=== PATIENT | female | born 1930 | race Caucasian/White ===

== ENCOUNTER 2016-05-09 17:42 | Emergency (ER) | payer MEDICARE ==
[~2016-05-09] VITALS: Wt 90.7 kg
[~2016-05-09 17:42] MED LIST: 'TENORMIN50 MG; ALPHAGAN-P 0.2%5 ML; ASPIRIN81 M1 PO; HYDROCHLOROTHIA25 MG PO; ICAPS MV1 TAB PO; KCL; LASIX20 MG; LEVOFLOXACIN500 MG PO; LISINOPRIL40 MG PO; MAREPA1200 MG; METFORMIN500 MG PO; MINIPRESS1 M1; NEXIUM40 MG PO; TRAMADOL HCL50 MG PO; VALIUM5 MG PO; ZETIA10 MG PO; [UNRECOGNIZED DRUG - OTHER] PO
[2016-05-09] MEDS ORDERED: K-TAB20 MEQ PO (18:05)
[2016-05-09 18:14] LABS: BASO % 0.3 % (0.0-1.0); EOS # 0.1 10*3/uL (0.0-0.4); EOS % 0.8 % (1.0-4.0); HEMATOCRIT 34.4 % (37.0-47.0); HEMOGLOBIN 11.4 g/dl (12.0-16.0); LYMPH # 0.7 10*3/uL (1.3-4.4); LYMPH % 6.2 % (27.0-41.0); MEAN CELL VOLUME 89.4 fl (81.0-99.0); MEAN CORPUSCULAR HGB 29.6 pg (27.0-31.0); MEAN CORPUSCULAR HGB CONC 33.1 g/dl (33.0-37.0); MONO # 0.7 10*3/uL (0.1-1.0); MONO % 6.4 % (3.0-9.0); NEUT # 9.6 10*3/uL (2.3-7.9); NEUT % 85.9 % (47.0-73.0); PLATELET COUNT AUTOMATED 256 10*3/uL (130-400); RED BLOOD COUNT 3.85 10*6/uL (4.10-5.10); WHITE BLOOD COUNT 11.2 10*3/uL (4.8-10.8)
[2016-05-09 18:26] LABS: BUN 10 mg/dl (7-24); CARBON DIOXIDE 24 mmol/L (21-32); CHLORIDE 102 mmol/L (98-107); EST GLOM FILT AFRICAN AMERICAN > 60 ml/min; GLUCOSE 143 mg/dL (65-99); POTASSIUM 3.7 mmol/L (3.5-5.1); SODIUM 138 mmol/L (136-145)
== END 2016-05-09 22:00 | disposition short-term general hospital (02) ==
LOC: ED 17:42
PROVIDERS: Emergency Medicine
DX: I63.9 Cerebral infarction, unspecified (principal); Z79.82 Long term (current) use of aspirin; Z90.49 Acquired absence of other specified parts of digestive tract; Z79.899 Other long term (current) drug therapy

== ENCOUNTER → 2016-05-26 | Outpatient (CLI) | payer MEDICARE ==
[~2016-05-26] MED LIST changes: +K-TAB20 MEQ PO
[2016-05-26 11:15] LABS: BILIRUBIN NEGATIVE (NEGATIVE); BLOOD NEGATIVE (NEGATIVE); CLARITY CLEAR (CLEAR); COLOR YELLOW (YELLOW); GLUCOSE NEGATIVE (NEGATIVE); KETONE NEGATIVE (NEGATIVE); LEUKO ESTERASE TRACE (NEGATIVE); NITRITE NEGATIVE (NEGATIVE); PROTEIN NEGATIVE (NEGATIVE); UROBILINOGEN 0.2 E.U./dl (0.2-1.0)
[2016-05-26 11:26] LABS: BACTERIA TRACE; RBC 0-2 rbc/hpf (0-2)
[2016-05-26 11:32] LABS: BASO # 0.1 10*3/uL (0.0-0.1); BASO % 0.7 % (0.0-1.0); EOS # 0.3 10*3/uL (0.0-0.4); EOS % 2.8 % (1.0-4.0); HEMOGLOBIN 12.2 g/dl (12.0-16.0); LYMPH # 1.5 10*3/uL (1.3-4.4); LYMPH % 16.1 % (27.0-41.0); MEAN CELL VOLUME 89.4 fl (81.0-99.0); MEAN CORPUSCULAR HGB 29.5 pg (27.0-31.0); MEAN PLATELET VOLUME 10.2 fl (9.6-12.3); MONO # 0.5 10*3/uL (0.1-1.0); MONO % 5.2 % (3.0-9.0); NEUT # 6.7 10*3/uL (2.3-7.9); NEUT % 74.8 % (47.0-73.0); PLATELET COUNT AUTOMATED 296 10*3/uL (130-400); RED BLOOD COUNT 4.14 10*6/uL (4.10-5.10); RED CELL DISTRI WIDTH 13.5 % (0-14.5)
[2016-05-26 11:34] LABS: HEMOGLOBIN A1c 6.4 % (4.8-5.6)
[2016-05-26 12:11] LABS: ALBUMIN 3.4 gm/dl (3.1-4.5); ALKALINE PHOSPHATASE 63 U/L (45-117); BILIRUBIN, TOTAL 0.4 mg/dl (0.2-1.0); BUN 12 mg/dl (7-24); CARBON DIOXIDE 24 mmol/L (21-32); CHLORIDE 102 mmol/L (98-107); EST GLOM FILT AFRICAN AMERICAN > 60 ml/min; GLUCOSE 93 mg/dL (65-99); POTASSIUM 4.1 mmol/L (3.5-5.1); SGOT/AST 15 IU/L (3-35); SGPT/ALT 16 U/L (12-78); SODIUM 140 mmol/L (136-145); TOTAL PROTEIN 6.8 gm/dL (6.4-8.2)
== END | disposition home or self-care (01) ==
LOC: LAB 10:15 → CARD 10:30
PROVIDERS: Nurse Practitioner Family
DX: E11.65 Type 2 diabetes mellitus with hyperglycemia (principal); I63.8 Other cerebral infarction; M54.9 Dorsalgia, unspecified; Z79.899 Other long term (current) drug therapy; E78.00 Pure hypercholesterolemia, unspecified

== ENCOUNTER 2016-06-09 16:13 | Emergency (ER) | payer MEDICARE ==
[~2016-06-09] VITALS: Ht 165.1 cm; Wt 77.1 kg
[2016-06-09 17:29] LABS: BASO % 0.4 % (0.0-1.0); EOS # 0.2 10*3/uL (0.0-0.4); EOS % 2.2 % (1.0-4.0); HEMATOCRIT 36.8 % (37.0-47.0); HEMOGLOBIN 12.1 g/dl (12.0-16.0); IG # 0.1 10*3/uL (0.0-0.1); LYMPH % 11.2 % (27.0-41.0); MEAN CORPUSCULAR HGB 29.6 pg (27.0-31.0); MEAN CORPUSCULAR HGB CONC 32.9 g/dl (33.0-37.0); MEAN PLATELET VOLUME 10.3 fl (9.6-12.3); MONO # 0.7 10*3/uL (0.1-1.0); MONO % 8.1 % (3.0-9.0); NEUT # 6.6 10*3/uL (2.3-7.9); NEUT % 77.5 % (47.0-73.0); PLATELET COUNT AUTOMATED 210 10*3/uL (130-400); RED BLOOD COUNT 4.09 10*6/uL (4.10-5.10); RED CELL DISTRI WIDTH 14.5 % (0-14.5); WHITE BLOOD COUNT 8.6 10*3/uL (4.8-10.8)
[2016-06-09 17:37] LABS: PROTHROMBIN TIME 10.8 SECONDS (9.0-12.4)
[2016-06-09 17:46] LABS: ALKALINE PHOSPHATASE 64 U/L (45-117); BILIRUBIN, TOTAL 0.6 mg/dl (0.2-1.0); BUN 12 mg/dl (7-24); CARBON DIOXIDE 26 mmol/L (21-32); CHLORIDE 98 mmol/L (98-107); EST GLOM FILT AFRICAN AMERICAN > 60 ml/min; GLUCOSE 136 mg/dL (65-99); POTASSIUM 3.6 mmol/L (3.5-5.1); SGOT/AST 14 IU/L (3-35); SGPT/ALT 20 U/L (12-78); SODIUM 134 mmol/L (136-145); TOTAL PROTEIN 6.6 gm/dL (6.4-8.2)
[2016-06-09 18:58] LABS: BILIRUBIN NEGATIVE (NEGATIVE); BLOOD 2+ (NEGATIVE); CLARITY SL CLOUDY (CLEAR); COLOR YELLOW (YELLOW); GLUCOSE NEGATIVE (NEGATIVE); KETONE NEGATIVE (NEGATIVE); LEUKO ESTERASE 1+ (NEGATIVE); NITRITE NEGATIVE (NEGATIVE); PROTEIN NEGATIVE (NEGATIVE); SPECIFIC GRAVITY <= 1.005 (1.005-1.030)
[2016-06-09 19:03] LABS: BACTERIA 4+; URINE REFLEX COMMENT YES (NO)
== END 2016-06-09 21:30 | disposition short-term general hospital (02) ==
LOC: ED 16:13
PROVIDERS: Nurse Practitioner Family
DX: S72.001A Fracture of unspecified part of neck of right femur, initial encounter for closed fracture (principal); I10 Essential (primary) hypertension; Z79.899 Other long term (current) drug therapy; W01.0XXA Fall on same level from slipping, tripping and stumbling without subsequent striking against object, initial encounter; Y93.9 Activity, unspecified; Y92.9 Unspecified place or not applicable; Y99.9 Unspecified external cause status

== ENCOUNTER 2016-06-16 19:07 | Inpatient (IN) | payer MEDICARE ==
[~2016-06-16] VITALS: Ht 157.5 cm; Wt 80.5 kg
[~2016-06-16 19:07] MED LIST changes: -ALPHAGAN-P 0.2%5 ML; +ALPHAGAN-P 0.2%5 ML OU
[2016-06-16 19:10] VITALS: BP 139/69
[2016-06-16] MEDS ORDERED: ACETAMINOPHEN325 M2 PO (19:18)
[2016-06-16] MEDS ORDERED: BIOFREEZE118 ML TP (19:19)
[2016-06-16] MEDS ORDERED: BISCOLAX10 M1 RC (19:20)
[2016-06-16] MEDS ORDERED: CELEXA20 MG PO (19:21)
[2016-06-16] MEDS ORDERED: CLINDAMYCIN150 MG PO (19:22)
[2016-06-16] MEDS ORDERED: COLACE100 MG PO (19:23)
[2016-06-16] MEDS ORDERED: CRESTOR40 M1 PO (19:24)
[2016-06-16] MEDS ORDERED: MILK OF MA400 MG/5 M PO (19:27)
[2016-06-16] MEDS ORDERED: NORCO 5-325 TA1 EACH PO (19:30)
[2016-06-16] MEDS ORDERED: PLAVIX75 M1 PO (19:31)
[2016-06-16] MEDS ORDERED: TRAMADOL HCL50 MG PO (19:33)
[2016-06-16] MEDS ORDERED: BETIMOL5 ML OP (19:33)
[2016-06-16] MEDS ORDERED: VITAMIN D1000 IU PO (19:34)
[2016-06-16 19:54] LABS: BASO % 0.1 % (0.0-1.0); EOS # 0.2 10*3/uL (0.0-0.4); EOS % 1.3 % (1.0-4.0); HEMATOCRIT 29.3 % (37.0-47.0); HEMOGLOBIN 9.6 g/dl (12.0-16.0); IG # 0.1 10*3/uL (0.0-0.1); LYMPH # 1.3 10*3/uL (1.3-4.4); LYMPH % 9.3 % (27.0-41.0); MEAN CELL VOLUME 89.3 fl (81.0-99.0); MEAN CORPUSCULAR HGB 29.3 pg (27.0-31.0); MEAN CORPUSCULAR HGB CONC 32.8 g/dl (33.0-37.0); MEAN PLATELET VOLUME 10.1 fl (9.6-12.3); MONO # 1.1 10*3/uL (0.1-1.0); MONO % 7.4 % (3.0-9.0); NEUT # 11.5 10*3/uL (2.3-7.9); NEUT % 81.2 % (47.0-73.0); PLATELET COUNT AUTOMATED 376 10*3/uL (130-400); RED BLOOD COUNT 3.28 10*6/uL (4.10-5.10); RED CELL DISTRI WIDTH 14.3 % (0-14.5); WHITE BLOOD COUNT 14.1 10*3/uL (4.8-10.8)
[2016-06-16 20:00] VITALS: BP 152/79
[2016-06-16 20:12] LABS: ALKALINE PHOSPHATASE 150 U/L (45-117); BILIRUBIN, TOTAL 0.5 mg/dl (0.2-1.0); BUN 23 mg/dl (7-24); CARBON DIOXIDE 18 mmol/L (21-32); CHLORIDE 102 mmol/L (98-107); EST GLOM FILT AFRICAN AMERICAN > 60 ml/min; GLUCOSE 122 mg/dL (65-99); POTASSIUM 3.6 mmol/L (3.5-5.1); SGOT/AST 25 IU/L (3-35); SGPT/ALT 28 U/L (12-78); SODIUM 136 mmol/L (136-145); TOTAL PROTEIN 5.9 gm/dL (6.4-8.2)
[2016-06-16 21:51] LABS: LA>2 REFLEX 2 HR DRAW NOW
[2016-06-16 22:24] VITALS: BP 142/70
[2016-06-16 22:26] LABS: LA>2 RFLX FOLLOW UP AT 2 HRS 3.3 mmol/L (0.4-2.0)
[2016-06-16 22:45] VITALS: BP 140/60
[2016-06-17 00:13] LABS: LA>2 REFLEX 4 HR DRAW NOW
[2016-06-17 01:03] LABS: CKMB 1.1 ng/ml (0.5-3.6); CPK 37 U/L (26-192)
[2016-06-17 01:04] LABS: TROPONIN I < 0.015 ng/ml (<0.045)
[2016-06-17 06:39] LABS: BASO % 0.3 % (0.0-1.0); EOS # 0.2 10*3/uL (0.0-0.4); EOS % 1.8 % (1.0-4.0); HEMATOCRIT 26.1 % (37.0-47.0); HEMOGLOBIN 8.4 g/dl (12.0-16.0); IG # 0.1 10*3/uL (0.0-0.1); LYMPH # 0.9 10*3/uL (1.3-4.4); LYMPH % 8.2 % (27.0-41.0); MEAN CELL VOLUME 90.3 fl (81.0-99.0); MEAN CORPUSCULAR HGB 29.1 pg (27.0-31.0); MEAN CORPUSCULAR HGB CONC 32.2 g/dl (33.0-37.0); MEAN PLATELET VOLUME 9.9 fl (9.6-12.3); MONO # 0.7 10*3/uL (0.1-1.0); MONO % 6.1 % (3.0-9.0); NEUT # 8.9 10*3/uL (2.3-7.9); NEUT % 82.4 % (47.0-73.0); PLATELET COUNT AUTOMATED 359 10*3/uL (130-400); RED BLOOD COUNT 2.89 10*6/uL (4.10-5.10); RED CELL DISTRI WIDTH 14.5 % (0-14.5); WHITE BLOOD COUNT 10.8 10*3/uL (4.8-10.8)
[2016-06-17 06:54] LABS: CKMB 1.1 ng/ml (0.5-3.6); CPK 32 U/L (26-192)
[2016-06-17 07:04] LABS: TROPONIN I < 0.015 ng/ml (<0.045)
[2016-06-17 07:07] LABS: ALKALINE PHOSPHATASE 130 U/L (45-117); BILIRUBIN, TOTAL 0.5 mg/dl (0.2-1.0); BUN 18 mg/dl (7-24); CARBON DIOXIDE 23 mmol/L (21-32); CHLORIDE 102 mmol/L (98-107); CHOLESTEROL 80 mg/dL (<200); EST GLOM FILT AFRICAN AMERICAN > 60 ml/min; FREE T4 1.14 ng/dl (0.76-1.46); GLUCOSE 116 mg/dL (65-99); HDL CHOLESTEROL 25 mg/dl (40-60); LDL CHOLESTEROL 26 mg/dL (9-159); MAGNESIUM 1.6 mg/dL (1.5-2.1); PHOSPHOROUS 2.4 mg/dL (2.5-4.9); POTASSIUM 3.4 mmol/L (3.5-5.1); SGOT/AST 21 IU/L (3-35); SGPT/ALT 25 U/L (12-78); SODIUM 139 mmol/L (136-145); TOTAL PROTEIN 5.6 gm/dL (6.4-8.2); TRIGLYCERIDES 145 mg/dl (<150); VLDL CHOLESTEROL 29 mg/dL (6-40)
[2016-06-17 07:34] LABS: INTERNATIONAL NORM RATIO 1.1 (2.0-3.5); PROTHROMBIN TIME 11.2 SECONDS (9.0-12.4)
[2016-06-17 07:58] LABS: VITAMIN D, 25-HYDROXY 13.9 ng/mL (30-100)
[2016-06-17 07:59] LABS: FOLIC ACID 8.44 ng/mL (>5.38)
[2016-06-17 08:00] VITALS: BP 156/86
[2016-06-17 08:20] LABS: HEMOGLOBIN A1c 5.8 % (4.8-5.6)
[2016-06-17] MEDS ORDERED: COREG25 MG PO (09:46)
[2016-06-17] MEDS ORDERED: ZETIA10 MG PO (09:46)
[2016-06-17] MEDS ORDERED: LOVAZA1 GM PO (09:47)
[2016-06-17] MEDS ORDERED: VALIUM2 MG PO (09:48)
[2016-06-17] MEDS ORDERED: TRAVATAN Z 2.52.5 ML OU (09:49)
[2016-06-17 12:35] LABS: CPK 37 U/L (26-192)
[2016-06-17 12:36] LABS: TROPONIN I < 0.015 ng/ml (<0.045)
[2016-06-17 16:00] VITALS: BP 130/60
[2016-06-17 20:00] VITALS: BP 122/56
[2016-06-18 00:29] VITALS: BP 120/60
[2016-06-18 05:58] LABS: BASO % 0.4 % (0.0-1.0); EOS # 0.3 10*3/uL (0.0-0.4); EOS % 2.7 % (1.0-4.0); HEMATOCRIT 24.9 % (37.0-47.0); HEMOGLOBIN 8.2 g/dl (12.0-16.0); IG # 0.2 10*3/uL (0.0-0.1); LYMPH # 0.8 10*3/uL (1.3-4.4); LYMPH % 8.4 % (27.0-41.0); MEAN CELL VOLUME 88.6 fl (81.0-99.0); MEAN CORPUSCULAR HGB 29.2 pg (27.0-31.0); MEAN CORPUSCULAR HGB CONC 32.9 g/dl (33.0-37.0); MEAN PLATELET VOLUME 9.8 fl (9.6-12.3); MONO # 0.7 10*3/uL (0.1-1.0); MONO % 7.4 % (3.0-9.0); NEUT # 7.5 10*3/uL (2.3-7.9); NEUT % 79.2 % (47.0-73.0); PLATELET COUNT AUTOMATED 340 10*3/uL (130-400); RED BLOOD COUNT 2.81 10*6/uL (4.10-5.10); RED CELL DISTRI WIDTH 14.4 % (0-14.5); WHITE BLOOD COUNT 9.5 10*3/uL (4.8-10.8)
[2016-06-18 06:10] LABS: CARBON DIOXIDE 24 mmol/L (21-32); CHLORIDE 105 mmol/L (98-107); EST GLOM FILT AFRICAN AMERICAN > 60 ml/min; GLUCOSE 113 mg/dL (65-99); POTASSIUM 3.3 mmol/L (3.5-5.1); SODIUM 137 mmol/L (136-145)
[2016-06-18 06:22] LABS: BUN 8 mg/dl (7-24)
[2016-06-18 08:00] VITALS: BP 136/86
[2016-06-18 12:00] VITALS: BP 172/84
[2016-06-18 16:00] VITALS: BP 159/98
[2016-06-18 20:00] VITALS: BP 152/79
[2016-06-19] VITALS: BP 141/79
[2016-06-19 05:47] LABS: BILIRUBIN NEGATIVE (NEGATIVE); BLOOD 1+ (NEGATIVE); CLARITY SL CLOUDY (CLEAR); COLOR YELLOW (YELLOW); GLUCOSE NEGATIVE (NEGATIVE); KETONE NEGATIVE (NEGATIVE); LEUKO ESTERASE 2+ (NEGATIVE); NITRITE NEGATIVE (NEGATIVE); PH 5.5 (5.0-9.0); PROTEIN NEGATIVE (NEGATIVE); SPECIFIC GRAVITY <= 1.005 (1.005-1.030); UROBILINOGEN 0.2 E.U./dl (0.2-1.0)
[2016-06-19 05:54] LABS: BACTERIA 2+; URINE REFLEX COMMENT YES (NO); WBC 21-30 wbc/hpf (0-5); YEAST 3+
[2016-06-19 06:39] LABS: BASO % 0.4 % (0.0-1.0); EOS # 0.2 10*3/uL (0.0-0.4); EOS % 2.6 % (1.0-4.0); HEMATOCRIT 27.1 % (37.0-47.0); HEMOGLOBIN 8.6 g/dl (12.0-16.0); IG # 0.2 10*3/uL (0.0-0.1); LYMPH # 0.9 10*3/uL (1.3-4.4); LYMPH % 10.2 % (27.0-41.0); MEAN CELL VOLUME 90.9 fl (81.0-99.0); MEAN CORPUSCULAR HGB 28.9 pg (27.0-31.0); MEAN CORPUSCULAR HGB CONC 31.7 g/dl (33.0-37.0); MEAN PLATELET VOLUME 9.7 fl (9.6-12.3); MONO # 0.5 10*3/uL (0.1-1.0); MONO % 6.4 % (3.0-9.0); NEUT # 6.6 10*3/uL (2.3-7.9); NEUT % 78.3 % (47.0-73.0); NUCLEATED RED BLOOD CELL 0.5 % (0.0-0.0); PLATELET COUNT AUTOMATED 359 10*3/uL (130-400); RED BLOOD COUNT 2.98 10*6/uL (4.10-5.10); RED CELL DISTRI WIDTH 14.5 % (0-14.5); WHITE BLOOD COUNT 8.4 10*3/uL (4.8-10.8)
[2016-06-19 07:01] LABS: BUN 4 mg/dl (7-24); CARBON DIOXIDE 25 mmol/L (21-32); CHLORIDE 106 mmol/L (98-107); EST GLOM FILT AFRICAN AMERICAN > 60 ml/min; GLUCOSE 123 mg/dL (65-99); POTASSIUM 3.5 mmol/L (3.5-5.1); SODIUM 138 mmol/L (136-145)
[2016-06-19 08:00] VITALS: BP 173/88
[2016-06-19] MEDS ORDERED: D-1000 185 MG-11 TAB PO (10:53)
[2016-06-19] MEDS ORDERED: B12,B-12,B 12500 MC1 PO (10:53)
[2016-06-19] MEDS ORDERED: CITALOPRAM HYDR20 MG PO (10:53)
[2016-06-19] MEDS ORDERED: LACTINEX 0.2 MG1 TAB PO (10:53)
[2016-06-19] MEDS ORDERED: FISH OIL 500MG PO (10:53)
[2016-06-19 12:00] VITALS: BP 145/79
== END 2016-06-19 15:25 | disposition other institution (70) | DRG 871 ==
LOC: ED 19:07 → EDHOLD 20:50 → 5E 20:50
PROVIDERS: Emergency Medicine; Family Medicine; Hospitalist
DX: A41.9 Sepsis, unspecified organism (principal); E43 Unspecified severe protein-calorie malnutrition; E87.2 Acidosis; A08.4 Viral intestinal infection, unspecified; E78.5 Hyperlipidemia, unspecified; I10 Essential (primary) hypertension; D64.9 Anemia, unspecified; E87.6 Hypokalemia; E55.9 Vitamin D deficiency, unspecified; R15.9 Full incontinence of feces; E53.8 Deficiency of other specified B group vitamins; E83.39 Other disorders of phosphorus metabolism; Z87.81 Personal history of (healed) traumatic fracture; Z86.73 Personal history of transient ischemic attack (TIA), and cerebral infarction without residual deficits; Z90.49 Acquired absence of other specified parts of digestive tract; Z90.710 Acquired absence of both cervix and uterus; Z79.82 Long term (current) use of aspirin; Z79.84 Long term (current) use of oral hypoglycemic drugs; Z79.899 Other long term (current) drug therapy; Z68.29 Body mass index [BMI] 29.0-29.9, adult

== ENCOUNTER 2016-08-04 11:35 | Inpatient (IN) | payer MEDICARE ==
[~2016-08-04] VITALS: Ht 155 cm; Wt 72.1 kg
[2016-08-04] VITALS (12 sets, daily range): BP systolic 81–132; BP diastolic 48–73
--- NOTE | ~2016-08-04 | O ---
[place], [place] OPERATIVE NOTE NAME: CORTNEY DORSEY UNIT #: [id number] ROOM: 426 DOCTOR: WILIAN HINOJOSA MD BIRTHDATE: [birth year] DOS: 08/04/2016 HISTORY OF PRESENT ILLNESS: An 86-year-old who has presented with chief complaint of anemia, drop in H and H to 6 and 21, undergoing investigation. PROCEDURE: Today's procedure part of investigation is panendoscopy. PREMEDICATION: Versed and Diprivan. SCOPE: Olympus forward-viewing gastroscope Q10 video. REPORT: After putting the patient in the left lateral position and after application of lubricant to the scope, the scope was introduced thereafter under direct visualization, I advanced through the length of the esophagus without difficulty. Distal esophageal ulceration was noticed. Gastric pouch was entered. Gastritis was seen. Duodenal bulb, second and third part within normal limit. The patient extubated, tolerated procedure well. IMPRESSION: Distal esophageal ulcer, esophagitis, gastritis. PLAN AND DISCUSSION: Protonix 40 mg IV b.i.d., sucralfate 2 grams slurry q.i.d. and clinical reassessment. Follow up on H and H, transfusion as necessary. WILIAN HINOJOSA MD CM:OPRECORD:OPERATIVE NOTE 1002 1106 WILIAN HINOJOSA MD 09/06/16 1141 interface
--- NOTE | ~2016-08-04 | PN ---
[place], [place] PROGRESS NOTE NAME: CORTNEY DORSEY UNIT #: [id number] ROOM: 426 DOCTOR: WILIAN HINJOOSA MD BIRTHDATE: [birth year] DATE: 08/09/16 This 86-year-old female presented with esophageal ulcer and bleeding vessel. She has been placed on Sandostatin, initially milk shakes and ice cream. Subsequently, progressed to full liquid diet and then to soft diet. She has had endoscopic assessment done with esophageal visible vessel in addition to esophageal ulcer has been known. H&H today is 11 and 44. We are satisfied with the improvement of the esophagus and responding to the Sandosatatin and Protonix double dose. REVIEW OF SYSTEMS: HEENT: Denies double vision, blurred vision. RESPIRATORY: Denies acute shortness of breath. CARDIOVASCULAR: Denies acute chest pain. DIGESTIVE SYSTEM: No hematemesis or hematochezia. Last bowel movement she had has converted to brown color. PHYSICAL EXAMINATION: VITAL SIGNS: Stable. HEENT: Head normocephalic, nontraumatic. Mouth and buccal mucosa benign. NECK: Supple. No thyromegaly. CHEST: Symmetric anatomy, equal expansion. No wheeze or rhonchi. HEART: Normal sinus rhythm. No gallop or murmur. ABDOMEN: Soft. No hepatosplenomegaly. Bowel sounds present. No pulsatile mass. IMPRESSION: Diffuse esophagitis and ulceration particularly visible vessel at distal esophagus post Sandostatin therapy which was terminated last night and status post transfusion, status post aggressive Protonix and Sucralfate therapy as ordered in addition to Gaviscon intermittently. PLAN AND DISCUSSION: We may keep her on the soft diet and continuation of same medications. H&H has stabilized. [place], [place] PROGRESS NOTE NAME: CORTNEY DORSEY UNIT #: [id number] ROOM: 426 DOCTOR: WILAIN HINOJOSA MD BIRTHDATE: [birth year] M.DWILIAN DEY MD CM:PNTRANS 1515 1525 KIMBERLY HINOJOSA MD 08/12/16 1539 BOBBY ABBOTT.HARRIS
--- NOTE | ~2016-08-04 | CON ---
[place], [place] REPORT OF CONSULTATION NAME: CORTNEY DORSEY UNIT #: [id number] ROOM: 426 DOCTOR: WILIAN HINOJOSA MD BIRTHDATE: [birth year] DOS: GASTROENDOSCOPIC REPORT HISTORY OF PRESENT ILLNESS: An 86-year-old patient who has presented with chief complaint of anemia, drop in H and H to 6 and 21, and guaiac positivity, on aspirin and Plavix. The patient to be transfused and stabilization in progress in ICU. Vitamin B12 and folate within normal limits. INR 1.1. PAST MEDICAL HISTORY: History of anemia, gastroparesis, history of diarrhea, history of degenerative joint disease, history of CVA. PAST SURGICAL HISTORY: Includes right hip fracture management, history of EGD, ERCP, cholecystectomy, papillotomy, appendectomy, hysterectomy, cataract lens implant, urethral stent and bladder repair. SOCIAL HISTORY: Nonsmoker, nonalcohol consumer. ALLERGIES: No known medication. FAMILY HISTORY: Noncontributory. MEDICATIONS: List has been reviewed. REVIEW OF SYSTEMS: GENERAL: Slow. HEENT: Denies double vision, blurred vision. RESPIRATORY: Denies acute shortness of breath. CARDIOVASCULAR: Denies acute chest pain. DIGESTIVE SYSTEM: Blood in the stool. PHYSICAL EXAMINATION: VITAL SIGNS: Frail patient. HEENT: Head normocephalic, nontraumatic. Mouth and buccal mucosa benign. NECK: Supple, no thyromegaly. CHEST: Symmetric anatomy, equal expansion. HEART: Normal sinus rhythm, no gallop, no murmur. ABDOMEN: Soft. No hepato-organomegaly. Bowel sounds present. No pulsatile mass. EXTREMITIES: No cyanosis. No pedal edema. NEUROLOGIC: Alert and slow. Medication list has been reviewed. The patient has been on Nexium and has been on clopidogrel, has been on aspirin; possibility of contribution of all above to anemia is a consideration. We are going to organize an endoscopic assessment of upper GI tract since she is guaiac positive. Thank you very much indeed. ADJUNCTIVE DIAGNOSES: As outlined in the paragraph of past medical and surgical [place], [place] REPORT OF CONSULTATION NAME: CORTNEY DORSEY UNIT #: [id number] ROOM: 426 DOCTOR: WILIAN HINOJOSA MD BIRTHDATE: [birth year] history. WILIAN HINOJOSA MD CM:CONSTR:REPORT OF CONSULTATION 1455 08/30/16 1336 KETTY NORMAN MIS.R
--- NOTE | ~2016-08-04 | WRIGHTHP ---
[place], [place] PATIENT HISTORY AND PHYSICAL EXAM NAME: CORTNEY DORSEY [facility] #: [id number] UNIT #: [id number] ROOM: [facility] DOCTOR: DARSHANA BAEZ DO BIRTHDATE: [birth year] DOS: 08/04/2016 PRIMARY CARE PHYSICIAN: Dr. Conteh. The patient was seen and evaluated with the resident on 08/04/2016. Please see the resident's note for further details. ASSESSMENT: 1. Acute upper gastrointestinal bleed secondary to esophagitis and bleeding esophageal ulcer seen on esophagogastroduodenoscopy, which was done today by Dr. Marte. 2. Acute blood loss anemia. 3. Hypotension secondary to hypovolemia. This has resolved. 4. Diabetes mellitus type 2. 5. History of cerebrovascular accident in 04/2016, resulting in right-sided weakness. 6. History of hypertension. 7. Hyperlipidemia. 8. Gastroesophageal reflux disease. 9. Echocardiogram in 07/2011 measured a normal ejection fraction. PLAN: Continue to closely monitor the patient in the ICU. The patient will remain n.p.o. Octreotide has been initiated by Dr. Marte. Continue Protonix IV. Repeat labs in the morning. DARSHANA BAEZ DO CM:HISPHYS:PATIENT HISTORY AND PHYSICAL EXAMINATION 01 22 DARSHANA BAEZ DO 08/04/162020 interface
[~2016-08-04 11:35] MED LIST changes: +ACETAMINOPHEN325 M2 PO; +B12,B-12,B 12500 MC1 PO; +BETIMOL5 ML OP; +BIOFREEZE118 ML TP; +BISCOLAX10 M1 RC; +CELEXA20 MG PO; +CITALOPRAM HYDR20 MG PO; +CLINDAMYCIN150 MG PO; +COLACE100 MG PO; +COREG25 MG PO; +CRESTOR40 M1 PO; +D-1000 185 MG-11 TAB PO; +FISH OIL 500MG PO; +LACTINEX 0.2 MG1 TAB PO; +LOVAZA1 GM PO; +MILK OF MA400 MG/5 M PO; +NORCO 5-325 TA1 EACH PO; +PLAVIX75 M1 PO; +TRAVATAN Z 2.52.5 ML OU; +VALIUM2 MG PO; +VITAMIN D1000 IU PO
[2016-08-04 13:22] LABS: INTERNATIONAL NORM RATIO 1.2 (2.0-3.5); PROTHROMBIN TIME 12.3 SECONDS (9.0-12.4)
[2016-08-04] MEDS ORDERED: ASPERCREAM1 EA T (14:16)
[2016-08-04] MEDS ORDERED: BISACODYL10 MG R (14:19)
[2016-08-04] MEDS ORDERED: LACTINEX 0.2 MG1 TAB PO (14:22)
[2016-08-04] MEDS ORDERED: VITAMIN D-32000 UNI1 PO (14:25)
[2016-08-04] MEDS ORDERED: VALIUM5 MG PO (14:32)
[2016-08-04] MEDS ORDERED: CRESTOR40 M1 PO (14:46)
[2016-08-04] MEDS ORDERED: LASIX20 MG PO (14:47)
[2016-08-04] MEDS ORDERED: MILK OF MA400 MG/5 M PO (14:48)
[2016-08-04] MEDS ORDERED: MINIPRESS1 M1 PO (14:48)
[2016-08-04] MEDS ORDERED: POLY VITAMIN PO (14:48)
[2016-08-04] MEDS ORDERED: POTASSIUM CHLO20 ME3 PO (14:50)
[2016-08-04] MEDS ORDERED: TRAMADOL HCL50 MG PO (14:50)
[2016-08-04] MEDS ORDERED: VOLTAREN11 T (14:51)
[2016-08-04] MEDS ORDERED: ZANTAC 150150 MG PO (14:52)
[2016-08-04] MEDS ORDERED: ALPHAGAN P 10 M10 M1 OPH (14:54)
[2016-08-05] VITALS: BP 93/30; BP 98/58
[2016-08-05 04:00] VITALS: BP 102/66
[2016-08-05 06:00] LABS: BASO % 0.5 % (0.0-1.0); EOS # 0.1 10*3/uL (0.0-0.4); EOS % 1.7 % (1.0-4.0); HEMATOCRIT 25.4 % (37.0-47.0); HEMOGLOBIN 8.4 g/dl (12.0-16.0); LYMPH # 0.6 10*3/uL (1.3-4.4); MEAN CELL VOLUME 89.1 fl (81.0-99.0); MEAN CORPUSCULAR HGB 29.5 pg (27.0-31.0); MEAN CORPUSCULAR HGB CONC 33.1 g/dl (33.0-37.0); MEAN PLATELET VOLUME 10.3 fl (9.6-12.3); MONO # 0.5 10*3/uL (0.1-1.0); MONO % 7.2 % (3.0-9.0); NEUT # 5.1 10*3/uL (2.3-7.9); PLATELET COUNT AUTOMATED 191 10*3/uL (130-400); RED BLOOD COUNT 2.85 10*6/uL (4.10-5.10); RED CELL DISTRI WIDTH 14.6 % (0-14.5); WHITE BLOOD COUNT 6.4 10*3/uL (4.8-10.8)
[2016-08-05 06:10] LABS: ALBUMIN 2.8 gm/dl (3.1-4.5); ALKALINE PHOSPHATASE 48 U/L (45-117); BILIRUBIN, TOTAL 0.6 mg/dl (0.2-1.0); BUN 57 mg/dl (7-24); CARBON DIOXIDE 25 mmol/L (21-32); CHLORIDE 103 mmol/L (98-107); EST GLOM FILT AFRICAN AMERICAN > 60 ml/min; FREE T4 0.76 ng/dl (0.76-1.46); GLUCOSE 139 mg/dL (65-99); PHOSPHOROUS 3.8 mg/dL (2.5-4.9); POTASSIUM 4.3 mmol/L (3.5-5.1); SGOT/AST 19 IU/L (3-35); SGPT/ALT 22 U/L (12-78); SODIUM 140 mmol/L (136-145); TOTAL PROTEIN 5.8 gm/dL (6.4-8.2)
[2016-08-05 06:14] LABS: THYROID STIM HORMONE (HS) 0.362 uIU/ml (0.358-4.75)
[2016-08-05 06:29] LABS: INTERNATIONAL NORM RATIO 1.1 (2.0-3.5)
[2016-08-05 08:00] VITALS: BP 119/63
[2016-08-05 08:16] LABS: VITAMIN D, 25-HYDROXY 30.6 ng/mL (30-100)
[2016-08-05 08:22] LABS: FOLIC ACID > 24.00 ng/mL (>5.38)
[2016-08-05 12:00] VITALS: BP 111/63
[2016-08-05 16:00] VITALS: BP 97/56
[2016-08-05 20:00] VITALS: BP 134/72
[2016-08-06] VITALS (10 sets, daily range): BP systolic 128–153; BP diastolic 68–83
[2016-08-06 05:51] LABS: CARBON DIOXIDE 28 mmol/L (21-32); CHLORIDE 105 mmol/L (98-107); EST GLOM FILT AFRICAN AMERICAN > 60 ml/min; GLUCOSE 135 mg/dL (65-99); POTASSIUM 3.5 mmol/L (3.5-5.1); SODIUM 141 mmol/L (136-145)
[2016-08-06 05:54] LABS: BASO % 0.9 % (0.0-1.0); EOS # 0.3 10*3/uL (0.0-0.4); EOS % 6.7 % (1.0-4.0); HEMATOCRIT 24.9 % (37.0-47.0); HEMOGLOBIN 7.8 g/dl (12.0-16.0); LYMPH % 21.3 % (27.0-41.0); MEAN CELL VOLUME 91.5 fl (81.0-99.0); MEAN CORPUSCULAR HGB 28.7 pg (27.0-31.0); MEAN CORPUSCULAR HGB CONC 31.3 g/dl (33.0-37.0); MEAN PLATELET VOLUME 10.5 fl (9.6-12.3); MONO # 0.5 10*3/uL (0.1-1.0); MONO % 11.6 % (3.0-9.0); NEUT # 2.7 10*3/uL (2.3-7.9); NEUT % 58.9 % (47.0-73.0); PLATELET COUNT AUTOMATED 153 10*3/uL (130-400); RED BLOOD COUNT 2.72 10*6/uL (4.10-5.10); RED CELL DISTRI WIDTH 15.1 % (0-14.5); WHITE BLOOD COUNT 4.6 10*3/uL (4.8-10.8)
[2016-08-06 06:01] LABS: BUN 29 mg/dl (7-24)
[2016-08-07] VITALS: BP 147/74
[2016-08-07 06:55] LABS: BASO % 0.6 % (0.0-1.0); EOS # 0.2 10*3/uL (0.0-0.4); EOS % 4.5 % (1.0-4.0); LYMPH # 0.6 10*3/uL (1.3-4.4); LYMPH % 13.7 % (27.0-41.0); MEAN CELL VOLUME 89.8 fl (81.0-99.0); MEAN CORPUSCULAR HGB 29.5 pg (27.0-31.0); MEAN CORPUSCULAR HGB CONC 32.9 g/dl (33.0-37.0); MEAN PLATELET VOLUME 9.7 fl (9.6-12.3); MONO # 0.4 10*3/uL (0.1-1.0); MONO % 7.9 % (3.0-9.0); NEUT # 3.4 10*3/uL (2.3-7.9); NEUT % 72.7 % (47.0-73.0); PLATELET COUNT AUTOMATED 155 10*3/uL (130-400); RED BLOOD COUNT 3.52 10*6/uL (4.10-5.10); RED CELL DISTRI WIDTH 14.6 % (0-14.5); WHITE BLOOD COUNT 4.7 10*3/uL (4.8-10.8)
[2016-08-07 06:57] LABS: HEMATOCRIT 31.6 % (37.0-47.0); HEMOGLOBIN 10.4 g/dl (12.0-16.0)
[2016-08-07 07:07] LABS: CARBON DIOXIDE 25 mmol/L (21-32); CHLORIDE 105 mmol/L (98-107); EST GLOM FILT AFRICAN AMERICAN > 60 ml/min; GLUCOSE 146 mg/dL (65-99); MAGNESIUM 1.9 mg/dL (1.5-2.1); POTASSIUM 3.6 mmol/L (3.5-5.1); SODIUM 141 mmol/L (136-145)
[2016-08-07 07:10] LABS: BUN 13 mg/dl (7-24)
[2016-08-07 08:00] VITALS: BP 157/87
[2016-08-07 12:00] VITALS: BP 150/79
[2016-08-07 16:00] VITALS: BP 150/86
[2016-08-07 20:00] VITALS: BP 149/85
[2016-08-08] VITALS: BP 147/84
[2016-08-08 06:59] LABS: BASO % 0.6 % (0.0-1.0); EOS # 0.2 10*3/uL (0.0-0.4); HEMATOCRIT 32.2 % (37.0-47.0); HEMOGLOBIN 10.6 g/dl (12.0-16.0); LYMPH # 0.9 10*3/uL (1.3-4.4); LYMPH % 17.5 % (27.0-41.0); MEAN CELL VOLUME 89.9 fl (81.0-99.0); MEAN CORPUSCULAR HGB 29.6 pg (27.0-31.0); MEAN CORPUSCULAR HGB CONC 32.9 g/dl (33.0-37.0); MEAN PLATELET VOLUME 9.5 fl (9.6-12.3); MONO # 0.6 10*3/uL (0.1-1.0); MONO % 11.3 % (3.0-9.0); NEUT # 3.4 10*3/uL (2.3-7.9); PLATELET COUNT AUTOMATED 157 10*3/uL (130-400); RED BLOOD COUNT 3.58 10*6/uL (4.10-5.10); RED CELL DISTRI WIDTH 14.8 % (0-14.5)
[2016-08-08 07:26] LABS: ALBUMIN 2.8 gm/dl (3.1-4.5); ALKALINE PHOSPHATASE 51 U/L (45-117); BILIRUBIN, TOTAL 0.4 mg/dl (0.2-1.0); BUN 9 mg/dl (7-24); CARBON DIOXIDE 28 mmol/L (21-32); CHLORIDE 103 mmol/L (98-107); EST GLOM FILT AFRICAN AMERICAN > 60 ml/min; GLUCOSE 159 mg/dL (65-99); POTASSIUM 3.6 mmol/L (3.5-5.1); SGOT/AST 24 IU/L (3-35); SGPT/ALT 33 U/L (12-78); SODIUM 139 mmol/L (136-145); TOTAL PROTEIN 5.5 gm/dL (6.4-8.2)
[2016-08-08 08:00] VITALS: BP 170/80
[2016-08-08 12:00] VITALS: BP 138/87
[2016-08-08 16:00] VITALS: BP 156/85
[2016-08-08 20:00] VITALS: BP 154/90
[2016-08-09] VITALS: BP 152/79
[2016-08-09 06:22] LABS: BASO # 0.1 10*3/uL (0.0-0.1); BASO % 0.6 % (0.0-1.0); EOS # 0.2 10*3/uL (0.0-0.4); EOS % 2.2 % (1.0-4.0); HEMATOCRIT 34.7 % (37.0-47.0); HEMOGLOBIN 11.2 g/dl (12.0-16.0); IG # 0.1 10*3/uL (0.0-0.1); LYMPH # 1.3 10*3/uL (1.3-4.4); MEAN CELL VOLUME 89.9 fl (81.0-99.0); MEAN CORPUSCULAR HGB CONC 32.3 g/dl (33.0-37.0); MEAN PLATELET VOLUME 10.1 fl (9.6-12.3); MONO # 0.9 10*3/uL (0.1-1.0); MONO % 10.7 % (3.0-9.0); NEUT % 70.8 % (47.0-73.0); PLATELET COUNT AUTOMATED 177 10*3/uL (130-400); RED BLOOD COUNT 3.86 10*6/uL (4.10-5.10); WHITE BLOOD COUNT 8.5 10*3/uL (4.8-10.8)
[2016-08-09 07:58] VITALS: BP 153/73
[2016-08-09 12:00] VITALS: BP 135/79
[2016-08-09] MEDS ORDERED: HUMALOG100 U/ML SC (12:02)
[2016-08-09] MEDS ORDERED: CARAFATE1 G1 PO (12:02)
[2016-08-09] MEDS ORDERED: PROTONIX40 MG PO (12:02)
[2016-08-09] MEDS ORDERED: TIMOLOL MALEATE5 ML OPH ×2 (13:00→13:14)
[2016-08-09] MEDS ORDERED: ATORVASTATIN CA40 M1 PO (13:00)
[2016-08-09] MEDS ORDERED: BRIMONIDINE TART5 ML OPH (13:00)
[2016-08-09] MEDS ORDERED: CITALOPRAM HYDR20 MG PO (13:00)
[2016-08-09] MEDS ORDERED: TRAVATAN 0.0042.5 M1 OPH ×2 (13:00→13:21)
[2016-08-09] MEDS ORDERED: TRAVATAN Z 2.52.5 ML OU (13:04)
[2016-08-09] MEDS ORDERED: VITAMIN D-32000 UNI1 PO (13:05)
[2016-08-09] MEDS ORDERED: ALPHAGAN P 10 M10 M1 OPH (13:06)
[2016-08-09] MEDS ORDERED: VALIUM5 MG PO (13:07)
[2016-08-09] MEDS ORDERED: PLAVIX75 M1 PO (13:08)
[2016-08-09] MEDS ORDERED: ASPIRIN81 M1 PO (13:10)
[2016-08-09] MEDS ORDERED: CRESTOR40 M1 PO (13:12)
[2016-08-09] MEDS ORDERED: LISINOPRIL40 MG PO (13:16)
[2016-08-09] MEDS ORDERED: COREG25 MG PO (13:21)
[2016-08-09] MEDS ORDERED: METFORMIN500 MG PO (15:28)
== END 2016-08-09 13:50 | disposition home health service (06) | DRG 380 ==
LOC: ED 11:35 → 4E 12:14 → ICCU 12:14 → EDHOLD 12:14 → ICCU 12:29 → 4E 08-06 12:56
PROVIDERS: Emergency Medicine; Internal Medicine; Internal Medicine Gastroenterology; Nurse Practitioner Family; Student in an Organized Health Care Education/Training Program
PROC: 30233N1 Transfusion of Nonautologous Red Blood Cells into Peripheral Vein, Percutaneous Approach (ICD-10-PCS; principal; 2016-08-04)
PROC: 30233R1 Transfusion of Nonautologous Platelets into Peripheral Vein, Percutaneous Approach (ICD-10-PCS; 2016-08-04)
DX: K22.11 Ulcer of esophagus with bleeding (principal); E43 Unspecified severe protein-calorie malnutrition; I95.9 Hypotension, unspecified; R82.71 Bacteriuria; D62 Acute posthemorrhagic anemia; R15.9 Full incontinence of feces; E11.9 Type 2 diabetes mellitus without complications; I10 Essential (primary) hypertension; E78.5 Hyperlipidemia, unspecified; R32 Unspecified urinary incontinence; E55.9 Vitamin D deficiency, unspecified; E53.8 Deficiency of other specified B group vitamins; K21.0 Gastro-esophageal reflux disease with esophagitis; H40.9 Unspecified glaucoma; G89.29 Other chronic pain; M54.9 Dorsalgia, unspecified; M19.90 Unspecified osteoarthritis, unspecified site; Z90.49 Acquired absence of other specified parts of digestive tract; Z86.73 Personal history of transient ischemic attack (TIA), and cerebral infarction without residual deficits; Z68.29 Body mass index [BMI] 29.0-29.9, adult; Z90.710 Acquired absence of both cervix and uterus; Z79.82 Long term (current) use of aspirin; Z79.899 Other long term (current) drug therapy; Z79.84 Long term (current) use of oral hypoglycemic drugs

== ENCOUNTER 2016-09-19 08:19 | Inpatient (IN) | payer MEDICARE ==
[2016-09-19] VITALS (13 sets, daily range): BP systolic 103–118; BP diastolic 55–71
[~2016-09-19] VITALS: Ht 154.9 cm; Wt 72.1 kg
--- NOTE | ~2016-09-19 | PROC NOTE ---
[place], [place] PROCEDURE NOTE NAME[id number] UNIT #: [id number] [facility]: [facility] DOCTOR: WALESKA CONTE,BRUCE BIRTHDATE: [birth year] DOS: 09/20/2016 I was called to the floor by Dr. Moscoso to CCU bed#4 to evaluate this patient. She was having bleeding and swelling on the right side of her neck after an attempt of right internal jugular central line placement, which was felt to be in the carotid artery. She was not actively bleeding on my arrival, and the nurse was applying pressure to the right neck. The patient was initially admitted for active GI bleeding and has been unable to have IV access obtained. She is currently hemodynamically stable. I evaluated both groins with ultrasound and felt that the left femoral vein was more easily accessible. A left femoral vein central venous catheter was obtained with ultrasound guidance after Betadine prep. This was performed with the usual Seldinger technique with maximum sterile conditions. There were no complications, and bleeding was minimal. According to Dr. Moscoso, the patient has been accepted at outside hospital for evaluation by Vascular Surgery and the patient is going to be transferred. BRUCE GALEANO MD CM:PROCNOTE:PROCEDURE NOTE 1233 2325 BRUCE GALEANO MD
[~2016-09-19 08:19] MED LIST changes: +ALPHAGAN P 10 M10 M1 OPH; +ASPERCREAM1 EA T; +ATORVASTATIN CA40 M1 PO; +BISACODYL10 MG R; +BRIMONIDINE TART5 ML OPH; +CARAFATE1 G1 PO; +HUMALOG100 U/ML SC; +LASIX20 MG PO; +MINIPRESS1 M1 PO; +POLY VITAMIN PO; +POTASSIUM CHLO20 ME3 PO; +PROTONIX40 MG PO; +TIMOLOL MALEATE5 ML OPH; +TRAVATAN 0.0042.5 M1 OPH; +VITAMIN D-32000 UNI1 PO; +VOLTAREN11 T; +ZANTAC 150150 MG PO
[2016-09-19] MEDS ORDERED: NITROFURANTOIN100 M9 PO (08:33)
[2016-09-19 09:08] LABS: BASO % 0.2 % (0.0-1.0); EOS # 0.1 10*3/uL (0.0-0.4); HEMATOCRIT 20.2 % (37.0-47.0); HEMOGLOBIN 6.4 g/dl (12.0-16.0); IG # 0.1 10*3/uL (0.0-0.1); LYMPH # 1.8 10*3/uL (1.3-4.4); LYMPH % 16.9 % (27.0-41.0); MEAN CELL VOLUME 92.7 fl (81.0-99.0); MEAN CORPUSCULAR HGB 29.4 pg (27.0-31.0); MEAN CORPUSCULAR HGB CONC 31.7 g/dl (33.0-37.0); MEAN PLATELET VOLUME 10.4 fl (9.6-12.3); MONO # 0.5 10*3/uL (0.1-1.0); MONO % 5.1 % (3.0-9.0); NEUT # 8.2 10*3/uL (2.3-7.9); NEUT % 76.3 % (47.0-73.0); PLATELET COUNT AUTOMATED 190 10*3/uL (130-400); RED BLOOD COUNT 2.18 10*6/uL (4.10-5.10); RED CELL DISTRI WIDTH 16.9 % (0-14.5); WHITE BLOOD COUNT 10.7 10*3/uL (4.8-10.8)
[2016-09-19 09:20] LABS: INTERNATIONAL NORM RATIO 1.3 (2.0-3.5); PROTHROMBIN TIME 13.8 SECONDS (9.0-12.4)
[2016-09-19 09:25] LABS: ALBUMIN 2.5 gm/dl (3.1-4.5); ALKALINE PHOSPHATASE 37 U/L (45-117); BILIRUBIN, TOTAL 0.2 mg/dl (0.2-1.0); BUN 36 mg/dl (7-24); CARBON DIOXIDE 24 mmol/L (21-32); CHLORIDE 108 mmol/L (98-107); CKMB 0.8 ng/ml (0.5-3.6); CPK 21 U/L (26-192); EST GLOM FILT AFRICAN AMERICAN > 60 ml/min; GLUCOSE 126 mg/dL (65-99); MAGNESIUM 1.9 mg/dL (1.5-2.1); POTASSIUM 3.7 mmol/L (3.5-5.1); SGOT/AST 12 IU/L (3-35); SGPT/ALT 24 U/L (12-78); SODIUM 140 mmol/L (136-145)
[2016-09-19 09:28] LABS: C-REACTIVE PROTEIN < 0.29 MG/DL (0-0.3); TROPONIN I < 0.015 ng/ml (<0.045)
[2016-09-19 11:06] LABS: LA>2 REFLEX 2 HR DRAW NOW
[2016-09-19 11:36] LABS: LA>2 RFLX FOLLOW UP AT 2 HRS 2.4 mmol/L (0.4-2.0)
[2016-09-19] MEDS ORDERED: VALIUM5 MG PO (11:42)
[2016-09-19] MEDS ORDERED: COREG12.5 M1 PO (11:44)
[2016-09-19] MEDS ORDERED: COSOPT 2%-0.5%10 ML OPH (11:45)
[2016-09-19 12:15] LABS: COL/ADP 113 SECONDS (63-105); COL/EPI > 300 SECONDS (86-157)
[2016-09-19 13:10] LABS: HEMATOCRIT 18.1 % (37.0-47.0)
[2016-09-19 13:16] LABS: HEMOGLOBIN 5.7 g/dl (12.0-16.0)
[2016-09-19 13:28] LABS: LA>2 REFLEX 4 HR DRAW NOW
[2016-09-19 22:24] LABS: HEMATOCRIT 17.1 % (37.0-47.0); HEMOGLOBIN 5.8 g/dl (12.0-16.0)
[2016-09-20] VITALS (16 sets, daily range): BP systolic 98–153; BP diastolic 53–79
[2016-09-20 06:09] LABS: ALBUMIN 2.3 gm/dl (3.1-4.5); ALKALINE PHOSPHATASE 35 U/L (45-117); BILIRUBIN, TOTAL 1.5 mg/dl (0.2-1.0); BUN 38 mg/dl (7-24); CARBON DIOXIDE 24 mmol/L (21-32); CHLORIDE 107 mmol/L (98-107); CHOLESTEROL 56 mg/dL (<200); EST GLOM FILT AFRICAN AMERICAN > 60 ml/min; GLUCOSE 144 mg/dL (65-99); HDL CHOLESTEROL 21 mg/dl (40-60); LDL CHOLESTEROL 0 mg/dL (9-159); MAGNESIUM 1.8 mg/dL (1.5-2.1); POTASSIUM 3.3 mmol/L (3.5-5.1); SGOT/AST 25 IU/L (3-35); SGPT/ALT 24 U/L (12-78); SODIUM 140 mmol/L (136-145); TOTAL PROTEIN 4.6 gm/dL (6.4-8.2); TRIGLYCERIDES 177 mg/dl (<150); VLDL CHOLESTEROL 35 mg/dL (6-40)
[2016-09-20 06:15] LABS: FREE T4 0.75 ng/dl (0.76-1.46); THYROID STIM HORMONE (HS) 0.525 uIU/ml (0.358-4.75)
[2016-09-20 06:18] LABS: INTERNATIONAL NORM RATIO 1.2 (2.0-3.5); PROTHROMBIN TIME 13.2 SECONDS (9.0-12.4)
[2016-09-20 06:56] LABS: BASO % 0.4 % (0.0-1.0); EOS # 0.1 10*3/uL (0.0-0.4); EOS % 1.4 % (1.0-4.0); LYMPH # 0.7 10*3/uL (1.3-4.4); MEAN CELL VOLUME 92.5 fl (81.0-99.0); MEAN CORPUSCULAR HGB 31.2 pg (27.0-31.0); MEAN CORPUSCULAR HGB CONC 33.8 g/dl (33.0-37.0); MONO # 0.5 10*3/uL (0.1-1.0); MONO % 5.9 % (3.0-9.0); NEUT # 6.4 10*3/uL (2.3-7.9); NEUT % 82.9 % (47.0-73.0); RED BLOOD COUNT 2.53 10*6/uL (4.10-5.10); RED CELL DISTRI WIDTH 15.4 % (0-14.5); WHITE BLOOD COUNT 7.7 10*3/uL (4.8-10.8)
[2016-09-20 07:00] LABS: HEMATOCRIT 23.4 % (37.0-47.0); HEMOGLOBIN 7.9 g/dl (12.0-16.0); PLATELET COUNT AUTOMATED 122 10*3/uL (130-400)
[2016-09-20 07:59] LABS: FOLIC ACID 11.91 ng/mL (>5.38); VITAMIN D, 25-HYDROXY 38.2 ng/mL (30-100)
[2016-09-20 08:22] LABS: HEMOGLOBIN A1c 4.9 % (4.8-5.6)
== END 2016-09-20 09:55 | disposition short-term general hospital (02) | DRG 377 ==
LOC: ED 08:19 → ICCU 10:01 → EDHOLD 10:01 → ICCU 10:22
PROVIDERS: Emergency Medicine; Internal Medicine; Internal Medicine Gastroenterology; Student in an Organized Health Care Education/Training Program
PROC: 05H533Z Insertion of Infusion Device into Right Subclavian Vein, Percutaneous Approach (ICD-10-PCS; principal; 2016-09-19)
PROC: B546ZZA Ultrasonography of Right Subclavian Vein, Guidance (ICD-10-PCS; principal; 2016-09-19)
PROC: 30243N1 Transfusion of Nonautologous Red Blood Cells into Central Vein, Percutaneous Approach (ICD-10-PCS; 2016-09-19)
PROC: 06HN33Z Insertion of Infusion Device into Left Femoral Vein, Percutaneous Approach (ICD-10-PCS; 2016-09-20)
PROC: B54CZZA Ultrasonography of Left Lower Extremity Veins, Guidance (ICD-10-PCS; 2016-09-20)
DX: K92.0 Hematemesis (principal); E43 Unspecified severe protein-calorie malnutrition; E87.2 Acidosis; E11.65 Type 2 diabetes mellitus with hyperglycemia; D69.6 Thrombocytopenia, unspecified; E87.8 Other disorders of electrolyte and fluid balance, not elsewhere classified; D64.9 Anemia, unspecified; D62 Acute posthemorrhagic anemia; E78.5 Hyperlipidemia, unspecified; K21.9 Gastro-esophageal reflux disease without esophagitis; H40.9 Unspecified glaucoma; I10 Essential (primary) hypertension; E87.6 Hypokalemia; E80.6 Other disorders of bilirubin metabolism; E53.8 Deficiency of other specified B group vitamins; E55.9 Vitamin D deficiency, unspecified; G89.29 Other chronic pain; M54.9 Dorsalgia, unspecified; Z87.81 Personal history of (healed) traumatic fracture; Z86.73 Personal history of transient ischemic attack (TIA), and cerebral infarction without residual deficits; Z90.49 Acquired absence of other specified parts of digestive tract; Z90.710 Acquired absence of both cervix and uterus; Z79.82 Long term (current) use of aspirin; Z79.899 Other long term (current) drug therapy; Z68.30 Body mass index [BMI] 30.0-30.9, adult

== ENCOUNTER → 2016-12-21 | Outpatient (CLI) | payer MEDICARE ==
[~2016-12-21] MED LIST changes: +CELEXA10 MG PO; +COREG12.5 M1 PO; +COSOPT 2%-0.5%10 ML OPH; +NITROFURANTOIN100 M9 PO
== END | disposition home or self-care (01) ==
LOC: LAB 09:44
PROVIDERS: Nurse Practitioner Family
DX: R19.7 Diarrhea, unspecified (principal)

== ENCOUNTER 2016-12-25 16:51 | Inpatient (IN) | payer MEDICARE ==
[~2016-12-25] VITALS: Ht 160 cm; Wt 68.5 kg
[~2016-12-25 16:51] MED LIST changes: -CELEXA10 MG PO
[2016-12-25 17:21] VITALS: BP 149/87
[2016-12-25 18:31] LABS: BASO % 0.4 % (0.0-1.0); EOS # 0.2 10*3/uL (0.0-0.4); EOS % 2.3 % (1.0-4.0); HEMATOCRIT 36.5 % (37.0-47.0); HEMOGLOBIN 11.7 g/dl (12.0-16.0); LYMPH # 1.1 10*3/uL (1.3-4.4); LYMPH % 14.4 % (27.0-41.0); MEAN CELL VOLUME 90.8 fl (81.0-99.0); MEAN CORPUSCULAR HGB 29.1 pg (27.0-31.0); MEAN CORPUSCULAR HGB CONC 32.1 g/dl (33.0-37.0); MEAN PLATELET VOLUME 9.9 fl (9.6-12.3); MONO # 0.4 10*3/uL (0.1-1.0); NEUT # 5.6 10*3/uL (2.3-7.9); NEUT % 76.5 % (47.0-73.0); PLATELET COUNT AUTOMATED 237 10*3/uL (130-400); RED BLOOD COUNT 4.02 10*6/uL (4.10-5.10); WHITE BLOOD COUNT 7.4 10*3/uL (4.8-10.8)
--- NOTE | 2016-12-25 18:39 | NUR ---
NOTIFIED BY LAB PT'S LACTIC ACID 3.4. DENNIS MURRELL NOTIFIED.
[2016-12-25 18:46] LABS: ALBUMIN 2.7 gm/dl (3.1-4.5); BUN 11 mg/dl (7-24); CHLORIDE 105 mmol/L (98-107); CREATININE 0.85 mg/dL (0.55-1.02); POTASSIUM 4.2 mmol/L (3.5-5.1); SGOT/AST 32 IU/L (3-35); SGPT/ALT 28 U/L (12-78); SODIUM 139 mmol/L (136-145); TOTAL PROTEIN 6.4 gm/dL (6.4-8.2)
[2016-12-25 18:52] LABS: ALKALINE PHOSPHATASE 84 U/L (45-117)
--- NOTE | 2016-12-25 19:51 | NUR ---
SINCE ARRIVAL IN THE EXAM ROOM THE PATIENT HAS NOT HAD A DIARRHEA EPISODE.
--- NOTE | 2016-12-25 20:53 | NUR ---
THIS NURSE TRIED TO CALL REPORT. UNSURE OF WHO THE RECEIVING NURSE IS
--- NOTE | 2016-12-25 20:55 | NUR ---
notified JUAREZ OF [place] 2.7
--- NOTE | 2016-12-25 21:02 | NUR ---
THE RECIEVING NURSE SHEILA IS UNABLE TO TAKE REPORT AT THIS TIME
[2016-12-25 21:55] VITALS: BP 149/76
--- NOTE | 2016-12-25 21:55 | NUR ---
Time: 2154 A 86 year old FEMALE admitted to 5E under services of TAYLOR DE LUNA DO. Pt. arrived via bed from ER. Chief complaint: DIARRHEA. CHRISTIN RUIZ
[2016-12-25] MEDS ORDERED: POTASSIUM CHLO20 ME3 PO (21:56)
[2016-12-25] MEDS ORDERED: PROTONIX40 MG PO (21:58)
[2016-12-25] MEDS ORDERED: CELEXA10 MG PO (22:01)
[2016-12-25] MEDS ORDERED: LISINOPRIL40 MG PO (22:02)
[2016-12-25] MEDS ORDERED: TRAMADOL HCL50 MG PO (22:09)
--- NOTE | 2016-12-25 22:10 | NUR ---
MED REC UP TO DATE WITH MED LIST FROM HOME
--- NOTE | 2016-12-25 22:18 | NUR ---
DR BAEZ MADE AWARE THAT MED REC UP TO DATE AND PT HAS NOT HAD PM MEDICATIONS AND IS ALSO REQUESTING PRN ULTRAM FOR PAIN. STATES HE WILL CONTINUE MEDICATIONS
[2016-12-25 22:55] VITALS: BP 149/76
--- NOTE | 2016-12-25 23:08 | NUR ---
CALLED TO PT ROOM, PT DAUGHTER STATES "I GAVE HER A VALIUM AND A ULTRAM, SO SHE WON'T NEED THOSE TONIGHT" INFORMED HER THAT HOME MEDS ARE CURRENTLY BEING PROFILED AND THAT THESE MEDS WILL NOT BE GIVEN THEN BUT MADE HER AWARE THAT SHE IS NOT TO GIVE PT MEDICATIONS AND THAT ANY MEDICATIONS FROM [facility] MUST BE TAKEN HOME WITH HER OR SENT TO OUR PHARMACY. SHE STATES SHE WILL TAKE THEM HOME WITH HER.
[2016-12-26] VITALS: BP 144/66
--- NOTE | 2016-12-26 00:46 | NUR ---
PT RECEIVED TYLENOL FOR PAIN IN LEGS RATED 5/10
--- NOTE | 2016-12-26 02:00 | NUR ---
SLEEPING. RESP EASY AND NONLABORED ON ROOM AIR. NO DISTRESS NOTED. CALL LIGHT IN REACH. BED ALARM ON. WILL CONTINUE TO MONITOR.
--- NOTE | 2016-12-26 06:41 | NUR ---
PT RECEIVED TYLENOL FOR HEEL PAIN, RATED 5/10.
[2016-12-26 06:53] LABS: BASO % 0.7 % (0.0-1.0); EOS # 0.1 10*3/uL (0.0-0.4); EOS % 2.3 % (1.0-4.0); HEMOGLOBIN 9.9 g/dl (12.0-16.0); LYMPH # 0.8 10*3/uL (1.3-4.4); LYMPH % 14.5 % (27.0-41.0); MEAN CELL VOLUME 89.1 fl (81.0-99.0); MEAN CORPUSCULAR HGB 29.3 pg (27.0-31.0); MEAN CORPUSCULAR HGB CONC 32.9 g/dl (33.0-37.0); MEAN PLATELET VOLUME 9.8 fl (9.6-12.3); MONO # 0.4 10*3/uL (0.1-1.0); MONO % 7.3 % (3.0-9.0); NEUT # 4.3 10*3/uL (2.3-7.9); NEUT % 74.9 % (47.0-73.0); PLATELET COUNT AUTOMATED 205 10*3/uL (130-400); RED BLOOD COUNT 3.38 10*6/uL (4.10-5.10); RED CELL DISTRI WIDTH 12.9 % (0-14.5); WHITE BLOOD COUNT 5.7 10*3/uL (4.8-10.8)
[2016-12-26 06:56] LABS: HEMATOCRIT 30.1 % (37.0-47.0)
[2016-12-26 07:29] LABS: BUN 9 mg/dl (7-24); CHLORIDE 107 mmol/L (98-107); CHOLESTEROL 57 mg/dL (<200); POTASSIUM 3.4 mmol/L (3.5-5.1); SODIUM 139 mmol/L (136-145)
[2016-12-26 07:34] LABS: VITAMIN D, 25-HYDROXY 39.3 ng/mL (30-100)
[2016-12-26 07:39] LABS: CREATININE 0.56 mg/dL (0.55-1.02); HDL CHOLESTEROL 26 mg/dl (40-60); LDL CHOLESTEROL 8 mg/dL (9-159); PHOSPHOROUS 2.6 mg/dL (2.5-4.9); TRIGLYCERIDES 116 mg/dl (<150); VLDL CHOLESTEROL 23 mg/dL (6-40)
[2016-12-26 08:00] VITALS: BP 152/56
--- NOTE | 2016-12-26 10:15 | NUR ---
Called and spoke with patients daughter, Rowan. She stated she would like to bring her mother home and would like a new order for [facility], Nurse/PT/OT/aides. Bharati notified.
[2016-12-26 16:00] VITALS: BP 156/60
--- NOTE | 2016-12-26 16:32 | NUR ---
PATIENT WAS UNABLE TO SIGN TO GIVE CONSENT FOR RECORDS FROM PCP BUT VERBALLY AGREES TO IT. WITNESSED BY MYSELF. PAPER SIGNED BY THIS NURSE.
--- NOTE | 2016-12-26 20:00 | NUR ---
ASSUMED CARE OF PATIENT. ASSESSMENT COMPLETE. RESTING IN BED. NO VOICED COMPLAINTS. CALL LIGHT IN REACH. WILL CONTINUE TO MONITOR.
[2016-12-26 20:35] VITALS: BP 142/69
[2016-12-27] VITALS: BP 137/73
--- NOTE | 2016-12-27 02:47 | NUR ---
MEDICATED WITH PRN ULTRAM FOR C/O BACK PAIN. RATES 08/21.
--- NOTE | 2016-12-27 03:30 | NUR ---
EARLIER ULTRAM APPEARS TO BE EFFECTIVE, PT SLEEPING. NO DISTRESS NOTED. BED ALARM ON. CALL LIGHT IN REACH. WILL CONTINUE TO MONITOR.
[2016-12-27 06:19] LABS: BASO % 0.3 % (0.0-1.0); EOS # 0.1 10*3/uL (0.0-0.4); EOS % 1.9 % (1.0-4.0); HEMATOCRIT 31.3 % (37.0-47.0); HEMOGLOBIN 10.4 g/dl (12.0-16.0); LYMPH # 0.8 10*3/uL (1.3-4.4); LYMPH % 12.7 % (27.0-41.0); MEAN CELL VOLUME 88.7 fl (81.0-99.0); MEAN CORPUSCULAR HGB 29.5 pg (27.0-31.0); MEAN CORPUSCULAR HGB CONC 33.2 g/dl (33.0-37.0); MEAN PLATELET VOLUME 9.5 fl (9.6-12.3); MONO # 0.5 10*3/uL (0.1-1.0); MONO % 7.4 % (3.0-9.0); NEUT # 4.9 10*3/uL (2.3-7.9); NEUT % 77.1 % (47.0-73.0); PLATELET COUNT AUTOMATED 230 10*3/uL (130-400); RED BLOOD COUNT 3.53 10*6/uL (4.10-5.10); WHITE BLOOD COUNT 6.4 10*3/uL (4.8-10.8)
[2016-12-27 06:50] LABS: BUN 7 mg/dl (7-24); CHLORIDE 108 mmol/L (98-107); CREATININE 0.56 mg/dL (0.55-1.02); POTASSIUM 3.2 mmol/L (3.5-5.1); SODIUM 140 mmol/L (136-145)
[2016-12-27 08:00] VITALS: BP 158/99
--- NOTE | 2016-12-27 09:39 | NUR ---
Patient not available for OT evaluation as she was eating breakfast. OTR will recheck at a later time. Aracely Thomas OTR/Zhanna
--- NOTE | 2016-12-27 10:42 | NUR ---
PHYSICAL THERAPY Patient evaluated on 5, full evaluation to follow. Continue with PT as per plan of care with fall, max (A) x 1-2, alarms and severe arthritic changes throughout (b)LE as well as CVA in April 28 and ADELA right May 29 precautions. Family reports no desire for SNF, will take patient home, will require 24/7 family and complete home health services. PAtient is high complexity via chart review, tests and evaluation: 74352. Thank you for this rfeferral. Milka Baker,PT
--- NOTE | 2016-12-27 11:13 | NUR ---
Occupational Therapy evaluation completed this date on 5 with full eval to follow. Precautions include fall risk, right knee pain, right hemiparesis,max +2 sit to stand, xfers, w/c at home, high complexity level. Recommend OT per POC and home with home health OT,PT,SN upon d/c. Thank you for this referral. Aracely Thomas OTR/l
[2016-12-27 12:00] VITALS: BP 154/74
--- NOTE | 2016-12-27 14:52 | NUR ---
PATIENT IS RESTING IN BED. PATIENT IS IN AND OUT OF SLEEP, BUT AROUSES EASILY. FAMILY IS AT THE PATIENTS BEDSIDE. PATIENT HAS SOME CHRONIC PAIN, BUT DENIES NEEDING ANYTHING FOR PAIN AT THIS TIME. PATIENT DENIES SOB OR NAUSEA. CALL LIGHT IS PLACED IN PATIENTS HAND. PATIENT IS IN CONTACT ISOLATION. HOB ELEVATED, AND HEELS ELEVATED.
--- NOTE | 2016-12-27 15:51 | NUR ---
LUIS FERNANDO SPOKE WITH DTR JALYN TO CONFIRM THAT PT WILL GO HOME WITH [facility]. JALYN SAID YES THAT PT WILL RETURN HOME WITH [facility]. SW WILL MAKE THE REFERRAL AT DISCHARGE.
--- NOTE | 2016-12-27 19:01 | NUR ---
PATIENT IS RESTING IN BED WITH FAMILY AT THE BEDSIDE. PATIENT IS ALERT AND ORIENTED BUT HAS TROUBLE RESPONDING AT TIMES. PATIENT DENIES ANY PAIN OR SOB, BUT DOES HAVE OCCASIONAL DISCOMFORT IN THEIR BACK. PATIENT HAS NO FURTHER REQUESTS AT THIS TIME. HOB IS ELEVATED. CALL LIGHT IS WITHIN REACH. SEE SHIFT ASSESSMENT.
[2016-12-28] VITALS: BP 117/67
[2016-12-28 07:31] LABS: BUN 6 mg/dl (7-24); CHLORIDE 107 mmol/L (98-107); CREATININE 0.56 mg/dL (0.55-1.02); POTASSIUM 3.4 mmol/L (3.5-5.1); SODIUM 140 mmol/L (136-145)
[2016-12-28 08:00] VITALS: BP 156/96
--- NOTE | 2016-12-28 10:41 | NUR ---
PHYSICAL THERAPY Patient presented to therapy in supine position with daughter present. Patient performed supine to sitting at EOB transfer with Max A X 1. Patient transfered sit to stand and stand-pivot to bedside commode with Max A X 2. Patient transfered sit to stand from bedside commode with Max A x 2. Patient ambulated 4' x 1 with Max A x 3 with W/W and IV pole. Chair was brought up behind patient so she could sit after the 4' ambulation. Patient was left in seated position with call light within reach and daughter present. There were two client server programmer with the patient as well. Patient was 1:1 with this BREAST BUFFER for 25 minutes total for transfers and gait. BRIDGETTE GUILLERMO BREAST BUFFER
[2016-12-28] MEDS ORDERED: METRONIDAZOLE500 M1 PO (10:53)
[2016-12-28] MEDS ORDERED: FLORASTOR250 MG PO (10:55)
--- NOTE | 2016-12-28 11:33 | NUR ---
SW FAXED REFERRAL TO [facility] INFORMING OF DISCHARGE TODAY.
--- NOTE | 2016-12-28 11:34 | NUR ---
LUIS FERNANDO SPOKE WITH DTR JALYN. JALYN WILL PROVIDE TRANSPORATION WHEN PT IS DSICHARGED TODAY.
--- NOTE | 2016-12-28 12:39 | NUR ---
Discharge instructions reviewed with patient/family. Patient receptive and verbalizes understanding. Follow-up care arranged. Written instructions given to patient/family.HEPLOCK REMOVED. RACHANA CAMP
--- NOTE | 2016-12-29 07:53 | NUR ---
PHYSICAL THERAPY CO-SIGN I approve of the Phyical Therapy notes written above. TALI BEARDEN PT
== END 2016-12-28 12:39 | disposition home health service (06) | DRG 371 ==
LOC: ED 16:51 → EDHOLD 19:59 → 5E 19:59
PROVIDERS: Internal Medicine; Nurse Practitioner Family; Student in an Organized Health Care Education/Training Program; ADMIT Internal Medicine
DX: A04.72 Enterocolitis due to Clostridium difficile, not specified as recurrent (principal); E43 Unspecified severe protein-calorie malnutrition; E87.2 Acidosis; K22.11 Ulcer of esophagus with bleeding; E11.69 Type 2 diabetes mellitus with other specified complication; D64.9 Anemia, unspecified; D72.825 Bandemia; K21.9 Gastro-esophageal reflux disease without esophagitis; F41.9 Anxiety disorder, unspecified; E78.2 Mixed hyperlipidemia; E55.9 Vitamin D deficiency, unspecified; E53.8 Deficiency of other specified B group vitamins; E66.9 Obesity, unspecified; G89.29 Other chronic pain; M54.9 Dorsalgia, unspecified; H40.9 Unspecified glaucoma; Z96.1 Presence of intraocular lens; Z96.641 Presence of right artificial hip joint; M17.11 Unilateral primary osteoarthritis, right knee; I10 Essential (primary) hypertension; Z68.26 Body mass index [BMI] 26.0-26.9, adult; Z79.84 Long term (current) use of oral hypoglycemic drugs; Z79.899 Other long term (current) drug therapy; Z87.81 Personal history of (healed) traumatic fracture; Z86.73 Personal history of transient ischemic attack (TIA), and cerebral infarction without residual deficits; Z90.49 Acquired absence of other specified parts of digestive tract; Z90.710 Acquired absence of both cervix and uterus; Z98.49 Cataract extraction status, unspecified eye; Z82.49 Family history of ischemic heart disease and other diseases of the circulatory system

== ENCOUNTER 2017-01-15 16:22 | Emergency (ER) | payer MEDICARE ==
[~2017-01-15] VITALS: Wt 68.5 kg
[~2017-01-15 16:22] MED LIST changes: +CELEXA10 MG PO; +FLORASTOR250 MG PO; +METRONIDAZOLE500 M1 PO
[2017-01-15 18:34] LABS: BASO % 0.5 % (0.0-1.0); EOS # 0.2 10*3/uL (0.0-0.4); EOS % 2.7 % (1.0-4.0); HEMATOCRIT 33.7 % (37.0-47.0); HEMOGLOBIN 10.8 g/dl (12.0-16.0); LYMPH # 1.2 10*3/uL (1.3-4.4); LYMPH % 14.3 % (27.0-41.0); MEAN CELL VOLUME 91.8 fl (81.0-99.0); MEAN CORPUSCULAR HGB 29.4 pg (27.0-31.0); MEAN PLATELET VOLUME 10.7 fl (9.6-12.3); MONO # 0.7 10*3/uL (0.1-1.0); MONO % 8.1 % (3.0-9.0); NEUT # 6.1 10*3/uL (2.3-7.9); PLATELET COUNT AUTOMATED 194 10*3/uL (130-400); RED BLOOD COUNT 3.67 10*6/uL (4.10-5.10); RED CELL DISTRI WIDTH 14.6 % (0-14.5); WHITE BLOOD COUNT 8.2 10*3/uL (4.8-10.8)
[2017-01-15 18:52] LABS: ALBUMIN 2.5 gm/dl (3.1-4.5); ALKALINE PHOSPHATASE 82 U/L (45-117); BUN 10 mg/dl (7-24); CHLORIDE 105 mmol/L (98-107); CREATININE 0.73 mg/dL (0.55-1.02); LIPASE 85 U/L (73-393); POTASSIUM 4.5 mmol/L (3.5-5.1); SGOT/AST 34 IU/L (3-35); SGPT/ALT 21 U/L (12-78); SODIUM 140 mmol/L (136-145); TOTAL PROTEIN 6.1 gm/dL (6.4-8.2)
[2017-01-15] MEDS ORDERED: FLAGYL500 MG PO (20:53)
[2017-01-15] MEDS ORDERED: VANCOCIN125 M1 PO (20:53)
== END 2017-01-15 21:14 | disposition home or self-care (01) ==
LOC: ED 16:22
PROVIDERS: Physician Assistant
DX: R19.7 Diarrhea, unspecified (principal); Z79.899 Other long term (current) drug therapy; Z90.49 Acquired absence of other specified parts of digestive tract; Z90.710 Acquired absence of both cervix and uterus; Z90.89 Acquired absence of other organs

== ENCOUNTER → 2017-02-08 | Outpatient (CLI) | payer MEDICARE ==
[~2017-02-08] MED LIST changes: +AMINOPHYLLIN200 MG PO; +FLAGYL500 MG PO; +LOMOTIL 2.5-0.1 EACH PO; +VANCOCIN125 M1 PO; +ZOFRAN ODT4 MG SL
== END | disposition home or self-care (01) ==
LOC: LAB 14:56
DX: R19.7 Diarrhea, unspecified (principal); Z86.19 Personal history of other infectious and parasitic diseases

== ENCOUNTER 2017-02-09 13:20 | Emergency (ER) | payer MEDICARE ==
[~2017-02-09] VITALS: Ht 154.9 cm; Wt 65.8 kg
[~2017-02-09 13:20] MED LIST changes: -AMINOPHYLLIN200 MG PO; -LOMOTIL 2.5-0.1 EACH PO; -ZOFRAN ODT4 MG SL
[2017-02-09 15:00] LABS: BASO % 0.4 % (0.0-1.0); EOS # 0.2 10*3/uL (0.0-0.4); EOS % 1.5 % (1.0-4.0); HEMATOCRIT 36.6 % (37.0-47.0); LYMPH # 1.3 10*3/uL (1.3-4.4); LYMPH % 12.7 % (27.0-41.0); MEAN CELL VOLUME 89.5 fl (81.0-99.0); MEAN CORPUSCULAR HGB 29.3 pg (27.0-31.0); MEAN CORPUSCULAR HGB CONC 32.8 g/dl (33.0-37.0); MEAN PLATELET VOLUME 10.9 fl (9.6-12.3); MONO # 0.9 10*3/uL (0.1-1.0); MONO % 8.5 % (3.0-9.0); NEUT # 7.8 10*3/uL (2.3-7.9); NEUT % 76.2 % (47.0-73.0); PLATELET COUNT AUTOMATED 189 10*3/uL (130-400); RED BLOOD COUNT 4.09 10*6/uL (4.10-5.10); RED CELL DISTRI WIDTH 16.1 % (0-14.5); WHITE BLOOD COUNT 10.2 10*3/uL (4.8-10.8)
[2017-02-09 15:21] LABS: PHOSPHOROUS 2.1 mg/dL (2.5-4.9)
[2017-02-09 15:25] LABS: ALBUMIN 2.4 gm/dl (3.1-4.5); ALKALINE PHOSPHATASE 97 U/L (45-117); BUN 18 mg/dl (7-24); CHLORIDE 99 mmol/L (98-107); CREATININE 0.87 mg/dL (0.55-1.02); LIPASE 79 U/L (73-393); POTASSIUM 3.5 mmol/L (3.5-5.1); SGOT/AST 15 IU/L (3-35); SGPT/ALT 16 U/L (12-78); SODIUM 130 mmol/L (136-145); TOTAL PROTEIN 5.8 gm/dL (6.4-8.2)
[2017-02-09 16:43] LABS: BILIRUBIN NEGATIVE (NEGATIVE); BLOOD TRACE-INTACT (NEGATIVE); CLARITY CLEAR (CLEAR); COLOR YELLOW (YELLOW); GLUCOSE NEGATIVE (NEGATIVE); KETONE NEGATIVE (NEGATIVE); LEUKO ESTERASE NEGATIVE (NEGATIVE); NITRITE NEGATIVE (NEGATIVE); PH 5.5 (5.0-9.0); SPECIFIC GRAVITY 1.015 (1.005-1.030); UROBILINOGEN 0.2 E.U./dl (0.2-1.0)
[2017-02-09 17:00] LABS: BACTERIA 2+; EPITHELIAL CELLS 0-2
[2017-02-09] MEDS ORDERED: ZOFRAN ODT4 MG SL (18:01)
[2017-02-09] MEDS ORDERED: LOMOTIL 2.5-0.1 EACH PO (18:01)
[2017-02-09] MEDS ORDERED: AMINOPHYLLIN200 MG PO (18:01)
== END 2017-02-09 18:06 | disposition home or self-care (01) ==
LOC: ED 13:20
PROVIDERS: Nurse Practitioner Family
DX: E46 Unspecified protein-calorie malnutrition (principal); E87.1 Hypo-osmolality and hyponatremia; R19.7 Diarrhea, unspecified; E11.9 Type 2 diabetes mellitus without complications; I10 Essential (primary) hypertension; K21.9 Gastro-esophageal reflux disease without esophagitis; E78.5 Hyperlipidemia, unspecified; E66.9 Obesity, unspecified; Z90.710 Acquired absence of both cervix and uterus; Z98.890 Other specified postprocedural states; Z90.49 Acquired absence of other specified parts of digestive tract; Z96.641 Presence of right artificial hip joint; Z68.34 Body mass index [BMI] 34.0-34.9, adult; Z79.899 Other long term (current) drug therapy

== ENCOUNTER 2017-02-14 14:24 | Inpatient (IN) | payer MEDICARE ==
[~2017-02-14] VITALS: Ht 165.1 cm; Wt 63.5 kg
[~2017-02-14 14:24] MED LIST changes: +AMINOPHYLLIN200 MG PO; +LOMOTIL 2.5-0.1 EACH PO; +ZOFRAN ODT4 MG SL
[2017-02-14 14:25] VITALS: BP 112/74
[2017-02-14] MEDS ORDERED: MILK OF MA400 MG/52 PO (14:54)
[2017-02-14] MEDS ORDERED: CRESTOR40 M1 PO (14:54)
[2017-02-14] MEDS ORDERED: PROTONIX40 MG PO (14:54)
[2017-02-14 14:56] VITALS: BP 113/68
[2017-02-14 15:26] LABS: BASO % 0.2 % (0.0-1.0); EOS # 0.2 10*3/uL (0.0-0.4); EOS % 1.6 % (1.0-4.0); HEMATOCRIT 32.9 % (37.0-47.0); HEMOGLOBIN 10.8 g/dl (12.0-16.0); LYMPH # 1.5 10*3/uL (1.3-4.4); LYMPH % 14.5 % (27.0-41.0); MEAN CORPUSCULAR HGB 28.9 pg (27.0-31.0); MEAN CORPUSCULAR HGB CONC 32.8 g/dl (33.0-37.0); MEAN PLATELET VOLUME 10.1 fl (9.6-12.3); MONO # 0.5 10*3/uL (0.1-1.0); MONO % 5.2 % (3.0-9.0); NEUT # 7.9 10*3/uL (2.3-7.9); NEUT % 77.6 % (47.0-73.0); PLATELET COUNT AUTOMATED 252 10*3/uL (130-400); RED BLOOD COUNT 3.74 10*6/uL (4.10-5.10); WHITE BLOOD COUNT 10.2 10*3/uL (4.8-10.8)
[2017-02-14 15:48] LABS: ALKALINE PHOSPHATASE 139 U/L (45-117); BUN 14 mg/dl (7-24); CHLORIDE 105 mmol/L (98-107); CREATININE 0.65 mg/dL (0.55-1.02); POTASSIUM 4.1 mmol/L (3.5-5.1); SGOT/AST 40 IU/L (3-35); SGPT/ALT 34 U/L (12-78); SODIUM 136 mmol/L (136-145)
[2017-02-14 16:14] VITALS: BP 112/72
[2017-02-14 16:17] LABS: BILIRUBIN NEGATIVE (NEGATIVE); BLOOD 2+ (NEGATIVE); CLARITY CLOUDY (CLEAR); COLOR YELLOW (YELLOW); GLUCOSE NEGATIVE (NEGATIVE); KETONE NEGATIVE (NEGATIVE); LEUKO ESTERASE 3+ (NEGATIVE); NITRITE POSITIVE (NEGATIVE); SPECIFIC GRAVITY 1.015 (1.005-1.030); UROBILINOGEN 0.2 E.U./dl (0.2-1.0)
[2017-02-14 16:31] LABS: WBC TNTC wbc/hpf (0-5)
[2017-02-14 16:45] VITALS: BP 130/82
[2017-02-14] MEDS ORDERED: CARAFATE1 G1 PO (17:57)
[2017-02-14] MEDS ORDERED: AMINOPHYLLIN200 MG PO (17:57)
[2017-02-14 20:00] VITALS: BP 128/80
[2017-02-15] VITALS: BP 134/73
[2017-02-15 05:56] LABS: ALBUMIN 1.8 gm/dl (3.1-4.5); ALKALINE PHOSPHATASE 120 U/L (45-117); BUN 13 mg/dl (7-24); CHLORIDE 106 mmol/L (98-107); CREATININE 0.52 mg/dL (0.55-1.02); PHOSPHOROUS 3.3 mg/dL (2.5-4.9); POTASSIUM 3.7 mmol/L (3.5-5.1); SGOT/AST 34 IU/L (3-35); SGPT/ALT 33 U/L (12-78); SODIUM 137 mmol/L (136-145); TOTAL PROTEIN 4.5 gm/dL (6.4-8.2)
[2017-02-15 06:08] LABS: BASO % 0.3 % (0.0-1.0); EOS # 0.2 10*3/uL (0.0-0.4); EOS % 1.5 % (1.0-4.0); HEMATOCRIT 31.3 % (37.0-47.0); MEAN CELL VOLUME 89.9 fl (81.0-99.0); MEAN CORPUSCULAR HGB 28.7 pg (27.0-31.0); MEAN CORPUSCULAR HGB CONC 31.9 g/dl (33.0-37.0); MEAN PLATELET VOLUME 10.3 fl (9.6-12.3); MONO # 0.7 10*3/uL (0.1-1.0); MONO % 5.2 % (3.0-9.0); NEUT # 10.9 10*3/uL (2.3-7.9); NEUT % 84.1 % (47.0-73.0); PLATELET COUNT AUTOMATED 250 10*3/uL (130-400); RED BLOOD COUNT 3.48 10*6/uL (4.10-5.10); RED CELL DISTRI WIDTH 15.9 % (0-14.5)
[2017-02-15 06:32] LABS: ACT PARTIAL THROMBO TIME 24.7 SECONDS (20.8-31.5); INTERNATIONAL NORM RATIO 1.2 (2.0-3.5)
[2017-02-15 08:00] VITALS: BP 136/65
[2017-02-15 12:00] VITALS: BP 130/78
[2017-02-15 16:00] VITALS: BP 135/77
[2017-02-15 20:00] VITALS: BP 126/72
[2017-02-16] VITALS: BP 104/71
[2017-02-16 06:50] LABS: BASO % 0.4 % (0.0-1.0); EOS # 0.1 10*3/uL (0.0-0.4); EOS % 1.5 % (1.0-4.0); HEMATOCRIT 27.8 % (37.0-47.0); HEMOGLOBIN 8.9 g/dl (12.0-16.0); LYMPH # 1.1 10*3/uL (1.3-4.4); LYMPH % 13.3 % (27.0-41.0); MEAN CELL VOLUME 89.4 fl (81.0-99.0); MEAN CORPUSCULAR HGB 28.6 pg (27.0-31.0); MEAN PLATELET VOLUME 10.2 fl (9.6-12.3); MONO # 0.5 10*3/uL (0.1-1.0); MONO % 5.9 % (3.0-9.0); NEUT # 6.2 10*3/uL (2.3-7.9); PLATELET COUNT AUTOMATED 253 10*3/uL (130-400); RED BLOOD COUNT 3.11 10*6/uL (4.10-5.10); RED CELL DISTRI WIDTH 16.1 % (0-14.5)
[2017-02-16 06:59] LABS: ALBUMIN 1.8 gm/dl (3.1-4.5); ALKALINE PHOSPHATASE 108 U/L (45-117); BUN 7 mg/dl (7-24); CHLORIDE 108 mmol/L (98-107); CREATININE 0.47 mg/dL (0.55-1.02); SGOT/AST 31 IU/L (3-35); SGPT/ALT 32 U/L (12-78); SODIUM 139 mmol/L (136-145); TOTAL PROTEIN 4.5 gm/dL (6.4-8.2)
[2017-02-16 08:00] VITALS: BP 132/66
[2017-02-16 12:00] VITALS: BP 130/75
[2017-02-16 16:00] VITALS: BP 97/50
[2017-02-16 20:00] VITALS: BP 136/66
[2017-02-17] VITALS: BP 104/56
[2017-02-17 07:07] LABS: HEMATOCRIT 29.5 % (37.0-47.0); HEMOGLOBIN 9.4 g/dl (12.0-16.0); MEAN CELL VOLUME 91.6 fl (81.0-99.0); MEAN CORPUSCULAR HGB 29.2 pg (27.0-31.0); MEAN CORPUSCULAR HGB CONC 31.9 g/dl (33.0-37.0); MEAN PLATELET VOLUME 9.8 fl (9.6-12.3); PLATELET COUNT AUTOMATED 266 10*3/uL (130-400); RED BLOOD COUNT 3.22 10*6/uL (4.10-5.10); RED CELL DISTRI WIDTH 16.2 % (0-14.5); WHITE BLOOD COUNT 5.4 10*3/uL (4.8-10.8)
[2017-02-17 07:14] LABS: BUN 4 mg/dl (7-24); CHLORIDE 110 mmol/L (98-107); CREATININE 0.42 mg/dL (0.55-1.02); POTASSIUM 3.5 mmol/L (3.5-5.1); SODIUM 139 mmol/L (136-145)
[2017-02-17 07:32] LABS: BASOPHILS 1 % (0-1); PLATELET SUFFICIENCY NORMAL (NORMAL); TOTAL CELLS COUNTED 100 #CELLS; TOXIC GRANULATION SLIGHT
[2017-02-17 07:33] LABS: BURR CELLS FEW; OVALOCYTES FEW
[2017-02-17 08:00] VITALS: BP 126/63
[2017-02-17 12:00] VITALS: BP 136/66
[2017-02-17] MEDS ORDERED: ALPHAGAN P 5 ML5 M1 OU (14:23)
[2017-02-17 16:00] VITALS: BP 130/71
[2017-02-17 20:00] VITALS: BP 121/62
[2017-02-18] VITALS: BP 111/56
[2017-02-18 08:00] VITALS: BP 154/80
[2017-02-18 12:00] VITALS: BP 154/80
[2017-02-18] MEDS ORDERED: VANCOMYCIN250 MG/2.5 PO (12:38)
[2017-02-18] MEDS ORDERED: VANCOCIN125 M1 PO (13:13)
== END 2017-02-18 16:38 | disposition home or self-care (01) | DRG 371 ==
LOC: ED 14:24 → 5E 16:07 → 4E 16:07 → EDHOLD 16:07 → 4E 16:22 → 5E 02-15 10:33
PROVIDERS: Emergency Medicine; Family Medicine
DX: A04.72 Enterocolitis due to Clostridium difficile, not specified as recurrent (principal); E43 Unspecified severe protein-calorie malnutrition; E11.8 Type 2 diabetes mellitus with unspecified complications; D64.9 Anemia, unspecified; I69.951 Hemiplegia and hemiparesis following unspecified cerebrovascular disease affecting right dominant side; E86.0 Dehydration; N39.0 Urinary tract infection, site not specified; E53.8 Deficiency of other specified B group vitamins; K21.9 Gastro-esophageal reflux disease without esophagitis; M19.90 Unspecified osteoarthritis, unspecified site; F41.9 Anxiety disorder, unspecified; I10 Essential (primary) hypertension; E78.5 Hyperlipidemia, unspecified; E55.9 Vitamin D deficiency, unspecified; H40.9 Unspecified glaucoma; K27.9 Peptic ulcer, site unspecified, unspecified as acute or chronic, without hemorrhage or perforation; Z96.641 Presence of right artificial hip joint; E66.9 Obesity, unspecified; M54.9 Dorsalgia, unspecified; G89.29 Other chronic pain; Z79.84 Long term (current) use of oral hypoglycemic drugs; Z79.899 Other long term (current) drug therapy; Z90.49 Acquired absence of other specified parts of digestive tract; Z90.710 Acquired absence of both cervix and uterus; Z82.49 Family history of ischemic heart disease and other diseases of the circulatory system; Z68.31 Body mass index [BMI] 31.0-31.9, adult

== ENCOUNTER → 2017-03-16 | Outpatient (CLI) | payer MEDICARE ==
[~2017-03-16] MED LIST changes: +ALPHAGAN P 5 ML5 M1 OU; +MILK OF MA400 MG/52 PO; +VANCOMYCIN250 MG/2.5 PO
== END | disposition home or self-care (01) ==
LOC: LAB 11:31
DX: R19.7 Diarrhea, unspecified (principal); Z86.19 Personal history of other infectious and parasitic diseases

== ENCOUNTER → 2017-04-06 | Outpatient (CLI) | payer MEDICARE | END | disposition home or self-care (01) | LOC: LAB 16:27 | DX: A04.72 Enterocolitis due to Clostridium difficile, not specified as recurrent (principal) ==

== ENCOUNTER 2017-04-22 16:39 | Inpatient (IN) | payer MEDICARE ==
[~2017-04-22] VITALS: Ht 157 cm; Wt 66.2 kg
--- NOTE | ~2017-04-22 | CON ---
[place], [place] REPORT OF CONSULTATION NAME: CORTNEY DORSEY UNIT #: [id number] ROOM: 410 DOCTOR: WILIAN HINOJOSA MD BIRTHDATE: [birth year] DOS: 04/25/2017 HISTORY OF PRESENT ILLNESS: The patient has presented with his history of recurrent C. diff colitis, at the present time on tapering dose of vancomycin therapy. The last C. diff x 2 has been negative. PAST MEDICAL HISTORY: Gastroesophageal reflux, hyperlipidemia, hypertension, esophageal ulcer. PAST SURGICAL HISTORY: Has been reviewed, hysterectomy, appendectomy, hip prosthesis, cholecystectomy, ERCP, and common duct surgery, and antibiotic therapies in the past. REVIEW OF SYSTEMS: HEENT: Denies double vision, blurred vision. RESPIRATORY: Denies shortness of breath. CARDIOVASCULAR: Denies acute chest pain. DIGESTIVE SYSTEM: No hematemesis, no diarrhea, now as aggressively as it was. PHYSICAL EXAMINATION: VITAL SIGNS: Stable. HEENT: Benign. Mouth dry. NECK: Supple, no thyromegaly. CHEST: Symmetric anatomy, equal expansion. HEART: Normal sinus rhythm, no gallop, no murmur. ABDOMEN: Soft. No hepato-organomegaly. Bowel sounds present. EXTREMITIES: Dry. Dorsalis pedis bilaterally palpable. LABORATORY DATA: Recent labs reviewed, H. pylori negative. C. diff negative. CBC, lastly H and H of 8 and 24 with platelet count of 145+ and latest basic metabolic panel potassium has been addressed. Phosphorus and magnesium, normal. BUN and creatinine, normal. GFR greater than 60, calcium 7.9 secondary to low albumin. PLAN AND DISCUSSION: I agree with tailoring dose of vancomycin and that even once that treatment is finished, then she can be also staying on one month of the Questran 1 pack per day that would further enhance prevention of C. diff toxin. [place], [place] REPORT OF CONSULTATION NAME: CORTNEY DORSEY UNIT #: [id number] ROOM: 410 DOCTOR: WILIAN HINOJOSA MD BIRTHDATE: [birth year] WILIAN HINOJOSA MD CM:CONSTR:REPORT OF CONSULTATION 1606 04/26/17 0015 interface
--- NOTE | ~2017-04-22 | CON ---
[place], [place] REPORT OF CONSULTATION [id number] #: [id number] RO[facility]: [facility] DOCTOR: WILIAN HINOJOSA MD BIRTHDATE: [birth year] DOS: 04/23/2017 HISTORY OF PRESENT ILLNESS: The patient is an 86-year-old patient who presented with chief complaint of hematemesis to the Emergency Room. The patient had to be admitted for definitive evaluation of coffee-ground emesis, etiology. The patient has been weak and tired and exhausted and appears to be dehydrated. At the time of admission, a panel of blood work was done. Her white blood cell was 9, H and H of 7 and 22, platelet count of 231. INR was 1.0. Comprehensive metabolic panel, electrolytes balanced. Liver function test normal. Lipase normal. Chest x-ray: Small right pleural effusion, new appearance. Left effusion also resolved. COMPREHENSIVE METABOLIC PANEL: BUN and creatinine 37 and 0.5. INR was 1.2. Hemoglobin A1c 4.6. PAST MEDICAL HISTORY: Anxiety, C. diff colitis, esophageal ulcers, essential hypertension, gastroesophageal reflux disease, and hyperlipidemia. PAST SURGICAL HISTORY: Previous ERCP and common duct surgery, cholecystectomy, appendectomy, hysterectomy, hiatal hernia repair, tonsillectomy, and right hip prosthesis. SOCIAL HISTORY: Nonsmoker, nonalcohol consumer. FAMILY HISTORY: Noncontributory. ALLERGIES: To no known medications. MEDICATIONS: List has been reviewed. Thus including metformin and vancomycin recently for C. diff colitis. REVIEW OF SYSTEMS: HEENT: Denies double vision, blurred vision. RESPIRATORY: Denies acute shortness of breath. CARDIOVASCULAR: Denies acute chest pain. DIGESTIVE SYSTEM: Hematemesis. PHYSICAL EXAMINATION: GENERAL: Exhausted tired looking. HEENT: Head normocephalic, nontraumatic. Mouth and buccal mucosa benign and edentulous. NECK: Supple, no thyromegaly, no cervical lymphadenopathy. CHEST: Symmetric anatomy, equal expansion. No wheeze, no rhonchi. HEART: Normal sinus rhythm, no gallop, no murmur. ABDOMEN: Soft. No hepato-organomegaly. Bowel sounds present. EXTREMITIES: Pedal edema 1+. NEUROLOGIC: Alert and oriented. LABORATORY DATA: Reviewed, records reviewed, status post transfusion. Records reviewed. [place], [place] REPORT OF CONSULTATION NAME: CORTNEY DORSEY UNIT #: [id number] ROOM: [facility] DOCTOR: MICAELA CONTE,WILIAN BIRTHDATE: [birth year] IMPRESSION: Pleural effusion, hematemesis, esophageal ulcer, hyperlipidemia, gastroesophageal reflux, diabetes mellitus, profound anemia, status post transfusion, essential hypertension, C. difficile colitis. PLAN AND DISCUSSION: We are going to endoscopically assess for etiologies of hematemesis. Workup in progress. OTHER ADJUNCTIVE DIAGNOSIS: As outlined above in paragraph of past medical and surgical history. WILIAN HINOJOSA MD CM:CONSTR:REPORT OF CONSULTATION 1819 04/24/17 0228 interface
--- NOTE | ~2017-04-22 | O ---
[place], [place] OPERATIVE NOTE NAME: CORTNEY DORSEY UNIT #: [id number] ROOM: [facility] DOCTOR: MICAELA CONTE,WILIAN BIRTHDATE: [birth year] DOS: 04/23/2017 SUBJECTIVE: The patient is 86 years old patient who presented with a chief complaint of hematemesis, undergoing investigation. PROCEDURE: Today's procedure part of investigation is panendoscopy plus biopsy. PREMEDICATION: Versed and Diprivan. SCOPE: Olympus forward-viewing gastroscope Q10 video. REPORT: After putting the patient in left lateral position and application of lubricant to the scope, the scope was introduced. Thereafter under direct visualization, advanced through the length of esophagus without difficulty. Distal esophagitis, distal esophageal ulcer was identified. This ulcer was scarred and not bleeding. Gastric pouch was entered. Gastritis was seen. Duodenal bulb, second and third part within normal limit. Antral biopsy obtained for H. pylori. The patient was gradually extubated and tolerated the procedure well. IMPRESSION: A 1 cm distal esophageal ulcer, most likely secondary to reflux distal esophagitis. PLAN AND DISCUSSION: PPI is going to be adopted for gastritis and distal esophageal ulcer management in addition to Carafate 1 gram slurry t.i.d. Workup in progress. WILIAN HINOJOSA MD CM:OPRECORD:OPERATIVE NOTE 1814 214 WILIAN HINOJOSA MD 04/23/17 214 interface
[2017-04-22 16:45] VITALS: BP 126/77
[2017-04-22 17:00] VITALS: BP 126/77
[2017-04-22 17:27] LABS: BASO # 0.1 10*3/uL (0.0-0.1); BASO % 0.5 % (0.0-1.0); EOS # 0.1 10*3/uL (0.0-0.4); EOS % 0.5 % (1.0-4.0); HEMATOCRIT 22.4 % (37.0-47.0); LYMPH # 2.1 10*3/uL (1.3-4.4); LYMPH % 21.4 % (27.0-41.0); MEAN CELL VOLUME 96.6 fl (81.0-99.0); MEAN CORPUSCULAR HGB 30.2 pg (27.0-31.0); MEAN CORPUSCULAR HGB CONC 31.3 g/dl (33.0-37.0); MEAN PLATELET VOLUME 10.4 fl (9.6-12.3); MONO # 0.4 10*3/uL (0.1-1.0); MONO % 4.3 % (3.0-9.0); NEUT % 72.8 % (47.0-73.0); PLATELET COUNT AUTOMATED 231 10*3/uL (130-400); RED BLOOD COUNT 2.32 10*6/uL (4.10-5.10); WHITE BLOOD COUNT 9.6 10*3/uL (4.8-10.8)
[2017-04-22 17:30] VITALS: BP 116/79
[2017-04-22 17:37] LABS: ACT PARTIAL THROMBO TIME 26.3 SECONDS (20.8-31.5); INTERNATIONAL NORM RATIO 1.1 (2.0-3.5)
[2017-04-22 17:43] LABS: ALBUMIN 2.3 gm/dl (3.1-4.5); ALKALINE PHOSPHATASE 54 U/L (45-117); BUN 40 mg/dl (7-24); CHLORIDE 108 mmol/L (98-107); CREATININE 0.62 mg/dL (0.55-1.02); LIPASE 97 U/L (73-393); POTASSIUM 4.6 mmol/L (3.5-5.1); SGOT/AST 13 IU/L (3-35); SGPT/ALT 18 U/L (12-78); SODIUM 140 mmol/L (136-145); TOTAL PROTEIN 5.2 gm/dL (6.4-8.2)
[2017-04-22 18:00] VITALS: BP 113/72
[2017-04-22 18:20] VITALS: BP 112/68
[2017-04-22] MEDS ORDERED: VALIUM5 MG PO (18:49)
[2017-04-22] MEDS ORDERED: TIMOLOL MALEATE5 M7 OP (19:00)
[2017-04-22 20:00] VITALS: BP 110/55
[2017-04-22] MEDS ORDERED: BENGAY113 GM T (20:15)
[2017-04-23] VITALS (13 sets, daily range): BP systolic 101–132; BP diastolic 34–79
[2017-04-23 04:56] LABS: ALBUMIN 2.2 gm/dl (3.1-4.5); ALKALINE PHOSPHATASE 41 U/L (45-117); BUN 37 mg/dl (7-24); CHLORIDE 108 mmol/L (98-107); CREATININE 0.53 mg/dL (0.55-1.02); PHOSPHOROUS 2.7 mg/dL (2.5-4.9); POTASSIUM 3.8 mmol/L (3.5-5.1); SGOT/AST 12 IU/L (3-35); SGPT/ALT 17 U/L (12-78); SODIUM 140 mmol/L (136-145); TOTAL PROTEIN 4.7 gm/dL (6.4-8.2)
[2017-04-23 06:07] LABS: BASO % 0.5 % (0.0-1.0); EOS # 0.2 10*3/uL (0.0-0.4); EOS % 3.2 % (1.0-4.0); HEMATOCRIT 20.3 % (37.0-47.0); HEMOGLOBIN 6.6 g/dl (12.0-16.0); LYMPH # 1.6 10*3/uL (1.3-4.4); LYMPH % 21.5 % (27.0-41.0); MEAN CORPUSCULAR HGB 30.4 pg (27.0-31.0); MEAN CORPUSCULAR HGB CONC 32.5 g/dl (33.0-37.0); MEAN PLATELET VOLUME 11.2 fl (9.6-12.3); MONO # 0.5 10*3/uL (0.1-1.0); MONO % 7.2 % (3.0-9.0); NEUT % 67.3 % (47.0-73.0); PLATELET COUNT AUTOMATED 183 10*3/uL (130-400); RED BLOOD COUNT 2.17 10*6/uL (4.10-5.10); RED CELL DISTRI WIDTH 17.4 % (0-14.5); WHITE BLOOD COUNT 7.4 10*3/uL (4.8-10.8)
[2017-04-23 06:08] LABS: MEAN CELL VOLUME 93.5 fl (81.0-99.0)
[2017-04-23 06:19] LABS: ACT PARTIAL THROMBO TIME 26.1 SECONDS (20.8-31.5); INTERNATIONAL NORM RATIO 1.2 (2.0-3.5)
[2017-04-23 07:19] LABS: VITAMIN D, 25-HYDROXY 25.1 ng/mL (30-100)
[2017-04-23 13:22] LABS: CHOLESTEROL 79 mg/dL (<200); HDL CHOLESTEROL 25 mg/dl (40-60); LDL CHOLESTEROL 16 mg/dL (9-159); TRIGLYCERIDES 192 mg/dl (<150); VLDL CHOLESTEROL 38 mg/dL (6-40)
[2017-04-23 19:34] LABS: BASO % 0.6 % (0.0-1.0); EOS # 0.3 10*3/uL (0.0-0.4); HEMATOCRIT 24.7 % (37.0-47.0); HEMOGLOBIN 8.2 g/dl (12.0-16.0); LYMPH # 1.3 10*3/uL (1.3-4.4); LYMPH % 20.4 % (27.0-41.0); MEAN CORPUSCULAR HGB 29.9 pg (27.0-31.0); MEAN CORPUSCULAR HGB CONC 33.2 g/dl (33.0-37.0); MEAN PLATELET VOLUME 10.2 fl (9.6-12.3); MONO # 0.5 10*3/uL (0.1-1.0); MONO % 7.3 % (3.0-9.0); NEUT # 4.2 10*3/uL (2.3-7.9); NEUT % 67.5 % (47.0-73.0); PLATELET COUNT AUTOMATED 161 10*3/uL (130-400); RED BLOOD COUNT 2.74 10*6/uL (4.10-5.10); RED CELL DISTRI WIDTH 18.8 % (0-14.5); WHITE BLOOD COUNT 6.3 10*3/uL (4.8-10.8)
[2017-04-23 19:35] LABS: MEAN CELL VOLUME 90.1 fl (81.0-99.0)
[2017-04-24] VITALS: BP 136/73
[2017-04-24 04:00] VITALS: BP 116/50
[2017-04-24 05:26] LABS: CHLORIDE 109 mmol/L (98-107); CREATININE 0.38 mg/dL (0.55-1.02); PHOSPHOROUS 2.8 mg/dL (2.5-4.9); POTASSIUM 3.4 mmol/L (3.5-5.1); SODIUM 141 mmol/L (136-145)
[2017-04-24 05:29] LABS: BUN 16 mg/dl (7-24)
[2017-04-24 05:54] LABS: BASO % 0.8 % (0.0-1.0); EOS # 0.3 10*3/uL (0.0-0.4); EOS % 6.5 % (1.0-4.0); HEMATOCRIT 23.8 % (37.0-47.0); HEMOGLOBIN 7.8 g/dl (12.0-16.0); LYMPH # 1.1 10*3/uL (1.3-4.4); LYMPH % 22.7 % (27.0-41.0); MEAN CELL VOLUME 91.9 fl (81.0-99.0); MEAN CORPUSCULAR HGB 30.1 pg (27.0-31.0); MEAN CORPUSCULAR HGB CONC 32.8 g/dl (33.0-37.0); MEAN PLATELET VOLUME 10.6 fl (9.6-12.3); MONO # 0.5 10*3/uL (0.1-1.0); MONO % 9.7 % (3.0-9.0); NEUT % 60.1 % (47.0-73.0); PLATELET COUNT AUTOMATED 146 10*3/uL (130-400); RED BLOOD COUNT 2.59 10*6/uL (4.10-5.10); RED CELL DISTRI WIDTH 18.8 % (0-14.5); WHITE BLOOD COUNT 4.9 10*3/uL (4.8-10.8)
[2017-04-24 08:00] VITALS: BP 145/80
[2017-04-24 12:00] VITALS: BP 145/80
[2017-04-24 16:00] VITALS: BP 138/64
[2017-04-24 20:00] VITALS: BP 110/52
[2017-04-25] VITALS: BP 113/50
[2017-04-25 06:57] LABS: EOS # 0.3 10*3/uL (0.0-0.4); EOS % 6.2 % (1.0-4.0); HEMATOCRIT 24.8 % (37.0-47.0); HEMOGLOBIN 8.1 g/dl (12.0-16.0); LYMPH # 1.1 10*3/uL (1.3-4.4); LYMPH % 26.9 % (27.0-41.0); MEAN CELL VOLUME 92.9 fl (81.0-99.0); MEAN CORPUSCULAR HGB 30.3 pg (27.0-31.0); MEAN CORPUSCULAR HGB CONC 32.7 g/dl (33.0-37.0); MEAN PLATELET VOLUME 10.3 fl (9.6-12.3); MONO # 0.4 10*3/uL (0.1-1.0); MONO % 9.7 % (3.0-9.0); NEUT # 2.2 10*3/uL (2.3-7.9); PLATELET COUNT AUTOMATED 145 10*3/uL (130-400); RED BLOOD COUNT 2.67 10*6/uL (4.10-5.10); RED CELL DISTRI WIDTH 18.2 % (0-14.5)
[2017-04-25 07:10] LABS: BUN 9 mg/dl (7-24); CHLORIDE 107 mmol/L (98-107); CREATININE 0.43 mg/dL (0.55-1.02); POTASSIUM 3.6 mmol/L (3.5-5.1); SODIUM 139 mmol/L (136-145)
[2017-04-25 08:00] VITALS: BP 136/76
[2017-04-25] MEDS ORDERED: VANCOCIN125 M1 PO (11:31)
[2017-04-25] MEDS ORDERED: LACTINEX 0.2 MG1 TAB PO (11:31)
[2017-04-25] MEDS ORDERED: ALPHAGAN P 5 ML5 M1 OU (11:31)
[2017-04-25] MEDS ORDERED: Carafate1 GM/10 ML PO (11:31)
[2017-04-25] MEDS ORDERED: TIMOLOL MALEATE5 M7 OP (11:31)
[2017-04-25] MEDS ORDERED: TRAVATAN Z 2.52.5 ML OU (11:31)
[2017-04-25] MEDS ORDERED: Zofran4 MG SL (11:31)
[2017-04-25] MEDS ORDERED: PANTOPRAZOLE SO40 MG PO (11:31)
[2017-04-25 12:00] VITALS: BP 141/68
[2017-04-25 16:00] VITALS: BP 143/71
== END 2017-04-25 17:30 | disposition home or self-care (01) | DRG 380 ==
LOC: ED 16:39 → EDHOLD 17:36 → 4E 17:36 → ICCU 17:36 → 4E 04-24 18:27
PROVIDERS: Emergency Medicine; Hospitalist; Internal Medicine; Internal Medicine Nephrology
PROC: 30233N1 Transfusion of Nonautologous Red Blood Cells into Peripheral Vein, Percutaneous Approach (ICD-10-PCS; principal; 2017-04-22)
PROC: 0DB68ZX Excision of Stomach, Via Natural or Artificial Opening Endoscopic, Diagnostic (ICD-10-PCS; 2017-04-23)
DX: K22.11 Ulcer of esophagus with bleeding (principal); E43 Unspecified severe protein-calorie malnutrition; J90 Pleural effusion, not elsewhere classified; A04.72 Enterocolitis due to Clostridium difficile, not specified as recurrent; K29.71 Gastritis, unspecified, with bleeding; D62 Acute posthemorrhagic anemia; E11.65 Type 2 diabetes mellitus with hyperglycemia; E87.8 Other disorders of electrolyte and fluid balance, not elsewhere classified; K21.0 Gastro-esophageal reflux disease with esophagitis; F41.9 Anxiety disorder, unspecified; M54.10 Radiculopathy, site unspecified; E53.8 Deficiency of other specified B group vitamins; M19.90 Unspecified osteoarthritis, unspecified site; H40.9 Unspecified glaucoma; R00.0 Tachycardia, unspecified; E78.5 Hyperlipidemia, unspecified; Z96.641 Presence of right artificial hip joint; M54.9 Dorsalgia, unspecified; G89.29 Other chronic pain; Z96.1 Presence of intraocular lens; E55.9 Vitamin D deficiency, unspecified; I10 Essential (primary) hypertension; E78.1 Pure hyperglyceridemia; E66.3 Overweight; Z68.26 Body mass index [BMI] 26.0-26.9, adult; Z87.11 Personal history of peptic ulcer disease; Z86.73 Personal history of transient ischemic attack (TIA), and cerebral infarction without residual deficits; Z87.01 Personal history of pneumonia (recurrent); Z85.828 Personal history of other malignant neoplasm of skin; Z87.440 Personal history of urinary (tract) infections; Z90.49 Acquired absence of other specified parts of digestive tract; Z90.710 Acquired absence of both cervix and uterus; Z98.49 Cataract extraction status, unspecified eye; Z82.49 Family history of ischemic heart disease and other diseases of the circulatory system; Z79.899 Other long term (current) drug therapy; Z79.84 Long term (current) use of oral hypoglycemic drugs

== ENCOUNTER → 2017-06-12 | Outpatient (CLI) | payer MEDICARE ==
[~2017-06-12] MED LIST changes: +BENGAY113 GM T; +Carafate1 GM/10 ML PO; +PANTOPRAZOLE SO40 MG PO; +TIMOLOL MALEATE5 M7 OP; +Zofran4 MG SL
[2017-06-12 10:34] LABS: BASO % 0.8 % (0.0-1.0); EOS # 0.2 10*3/uL (0.0-0.4); EOS % 3.5 % (1.0-4.0); HEMOGLOBIN 10.9 g/dl (12.0-16.0); MEAN CELL VOLUME 91.1 fl (81.0-99.0); MEAN CORPUSCULAR HGB 27.6 pg (27.0-31.0); MEAN CORPUSCULAR HGB CONC 30.3 g/dl (33.0-37.0); MEAN PLATELET VOLUME 11.1 fl (9.6-12.3); MONO # 0.4 10*3/uL (0.1-1.0); MONO % 8.9 % (3.0-9.0); NEUT # 3.2 10*3/uL (2.3-7.9); NEUT % 66.4 % (47.0-73.0); PLATELET COUNT AUTOMATED 174 10*3/uL (130-400); RED BLOOD COUNT 3.95 10*6/uL (4.10-5.10); RED CELL DISTRI WIDTH 14.5 % (0-14.5); WHITE BLOOD COUNT 4.9 10*3/uL (4.8-10.8)
== END | disposition home or self-care (01) ==
LOC: RESCLI 00:40
PROVIDERS: Internal Medicine
DX: D50.0 Iron deficiency anemia secondary to blood loss (chronic) (principal)

== ENCOUNTER → 2017-07-04 | Outpatient (CLI) | payer MEDICARE | END | disposition home or self-care (01) | LOC: LAB 13:04 | DX: E43 Unspecified severe protein-calorie malnutrition (principal) ==

== ENCOUNTER 2017-08-07 14:37 | Emergency (ER) | payer MEDICARE ==
[~2017-08-07] VITALS: Ht 157.4 cm; Wt 69.9 kg
[2017-08-07 15:40] LABS: BASO # 0.1 10*3/uL (0.0-0.1); BASO % 0.3 % (0.0-1.0); EOS # 0.3 10*3/uL (0.0-0.4); EOS % 2.1 % (1.0-4.0); HEMATOCRIT 33.7 % (37.0-47.0); HEMOGLOBIN 10.6 g/dl (12.0-16.0); LYMPH # 1.2 10*3/uL (1.3-4.4); LYMPH % 8.5 % (27.0-41.0); MEAN CELL VOLUME 83.2 fl (81.0-99.0); MEAN CORPUSCULAR HGB 26.2 pg (27.0-31.0); MEAN CORPUSCULAR HGB CONC 31.5 g/dl (33.0-37.0); MEAN PLATELET VOLUME 10.2 fl (9.6-12.3); MONO % 7.1 % (3.0-9.0); NEUT # 11.8 10*3/uL (2.3-7.9); NEUT % 81.5 % (47.0-73.0); PLATELET COUNT AUTOMATED 256 10*3/uL (130-400); RED BLOOD COUNT 4.05 10*6/uL (4.10-5.10); RED CELL DISTRI WIDTH 14.8 % (0-14.5); WHITE BLOOD COUNT 14.4 10*3/uL (4.8-10.8)
[2017-08-07 15:49] LABS: INTERNATIONAL NORM RATIO 1.2 (2.0-3.5)
[2017-08-07 15:58] LABS: ALBUMIN 2.7 gm/dl (3.1-4.5); ALKALINE PHOSPHATASE 128 U/L (45-117); BUN 13 mg/dl (7-24); CHLORIDE 103 mmol/L (98-107); CREATININE 0.72 mg/dL (0.55-1.02); LIPASE 65 U/L (73-393); POTASSIUM 3.2 mmol/L (3.5-5.1); SGOT/AST 16 IU/L (3-35); SGPT/ALT 16 U/L (12-78); SODIUM 135 mmol/L (136-145); TOTAL PROTEIN 6.4 gm/dL (6.4-8.2)
[2017-08-07 15:59] LABS: TROPONIN I < 0.015 ng/ml (<0.045)
== END 2017-08-07 19:56 | disposition short-term general hospital (02) ==
LOC: ED 14:37
PROVIDERS: Physician Assistant
DX: S06.6X0A Traumatic subarachnoid hemorrhage without loss of consciousness, initial encounter (principal); A04.72 Enterocolitis due to Clostridium difficile, not specified as recurrent; Z90.49 Acquired absence of other specified parts of digestive tract; Z90.710 Acquired absence of both cervix and uterus; Z98.890 Other specified postprocedural states; Z96.641 Presence of right artificial hip joint; Z79.899 Other long term (current) drug therapy; W22.8XXA Striking against or struck by other objects, initial encounter; Y93.89 Activity, other specified; Y92.89 Other specified places as the place of occurrence of the external cause; Y99.9 Unspecified external cause status

== ENCOUNTER → 2017-09-11 | Outpatient (CLI) | payer MEDICARE | END | disposition home or self-care (01) | LOC: RESCLI 03:27 | DX: F41.9 Anxiety disorder, unspecified (principal); D64.9 Anemia, unspecified; M54.5 Low back pain; G89.4 Chronic pain syndrome; A04.72 Enterocolitis due to Clostridium difficile, not specified as recurrent; M25.561 Pain in right knee; K21.0 Gastro-esophageal reflux disease with esophagitis; I10 Essential (primary) hypertension; E11.9 Type 2 diabetes mellitus without complications; H40.9 Unspecified glaucoma; I60.9 Nontraumatic subarachnoid hemorrhage, unspecified; Z79.899 Other long term (current) drug therapy; Z79.891 Long term (current) use of opiate analgesic; Z88.8 Allergy status to other drugs, medicaments and biological substances; Z90.710 Acquired absence of both cervix and uterus; Z90.49 Acquired absence of other specified parts of digestive tract ==

== ENCOUNTER → 2017-10-31 | Outpatient (CLI) | payer MEDICARE ==
[~2017-10-31] MED LIST changes: +MAALOX ADVANCE355 M1 PO; +VOLTAREN100 GM T
[2017-10-31 17:07] LABS: BASO % 0.6 % (0.0-1.0); EOS # 0.2 10*3/uL (0.0-0.4); EOS % 2.9 % (1.0-4.0); HEMATOCRIT 34.4 % (37.0-47.0); HEMOGLOBIN 10.2 g/dl (12.0-16.0); LYMPH # 1.1 10*3/uL (1.3-4.4); LYMPH % 17.1 % (27.0-41.0); MEAN CELL VOLUME 84.7 fl (81.0-99.0); MEAN CORPUSCULAR HGB 25.1 pg (27.0-31.0); MEAN CORPUSCULAR HGB CONC 29.7 g/dl (33.0-37.0); MEAN PLATELET VOLUME 9.8 fl (9.6-12.3); MONO # 0.6 10*3/uL (0.1-1.0); MONO % 9.3 % (3.0-9.0); NEUT # 4.5 10*3/uL (2.3-7.9); NEUT % 69.8 % (47.0-73.0); PLATELET COUNT AUTOMATED 251 10*3/uL (130-400); RED BLOOD COUNT 4.06 10*6/uL (4.10-5.10); RED CELL DISTRI WIDTH 16.2 % (0-14.5); WHITE BLOOD COUNT 6.5 10*3/uL (4.8-10.8)
[2017-10-31 17:36] LABS: ALBUMIN 2.7 gm/dl (3.1-4.5); ALKALINE PHOSPHATASE 127 U/L (45-117); BUN 12 mg/dl (7-24); CHLORIDE 102 mmol/L (98-107); CREATININE 0.65 mg/dL (0.55-1.02); POTASSIUM 4.2 mmol/L (3.5-5.1); SGOT/AST 67 IU/L (3-35); SGPT/ALT 63 U/L (12-78); SODIUM 136 mmol/L (136-145); TOTAL PROTEIN 6.9 gm/dL (6.4-8.2)
== END | disposition home or self-care (01) ==
LOC: RESCLI 00:22 → LAB 00:22 → RESCLI 07:50
PROVIDERS: Student in an Organized Health Care Education/Training Program
DX: J98.11 Atelectasis (principal); K21.0 Gastro-esophageal reflux disease with esophagitis; E55.9 Vitamin D deficiency, unspecified; E53.8 Deficiency of other specified B group vitamins

== ENCOUNTER → 2017-11-05 | Outpatient (CLI) | payer MEDICARE ==
[2017-11-05 17:24] LABS: BASO % 0.6 % (0.0-1.0); EOS # 0.2 10*3/uL (0.0-0.4); EOS % 3.1 % (1.0-4.0); HEMATOCRIT 35.4 % (37.0-47.0); HEMOGLOBIN 10.7 g/dl (12.0-16.0); LYMPH # 1.2 10*3/uL (1.3-4.4); LYMPH % 17.8 % (27.0-41.0); MEAN CELL VOLUME 83.9 fl (81.0-99.0); MEAN CORPUSCULAR HGB 25.4 pg (27.0-31.0); MEAN CORPUSCULAR HGB CONC 30.2 g/dl (33.0-37.0); MEAN PLATELET VOLUME 10.3 fl (9.6-12.3); MONO # 0.5 10*3/uL (0.1-1.0); MONO % 7.6 % (3.0-9.0); NEUT # 4.8 10*3/uL (2.3-7.9); NEUT % 70.8 % (47.0-73.0); PLATELET COUNT AUTOMATED 217 10*3/uL (130-400); RED BLOOD COUNT 4.22 10*6/uL (4.10-5.10); RED CELL DISTRI WIDTH 15.9 % (0-14.5); WHITE BLOOD COUNT 6.8 10*3/uL (4.8-10.8)
[2017-11-05 17:41] LABS: ALBUMIN 2.7 gm/dl (3.1-4.5); ALKALINE PHOSPHATASE 118 U/L (45-117); BUN 11 mg/dl (7-24); CHLORIDE 104 mmol/L (98-107); CREATININE 0.58 mg/dL (0.55-1.02); LDH 177 U/L (84-246); POTASSIUM 4.1 mmol/L (3.5-5.1); SGOT/AST 45 IU/L (3-35); SGPT/ALT 52 U/L (12-78); SODIUM 137 mmol/L (136-145); TOTAL PROTEIN 7.2 gm/dL (6.4-8.2)
== END | disposition home or self-care (01) ==
LOC: LAB 16:37
PROVIDERS: Student in an Organized Health Care Education/Training Program
DX: J90 Pleural effusion, not elsewhere classified (principal)

== ENCOUNTER → 2017-11-09 | Day surgery (SDC) | payer MEDICARE ==
[2017-11-09 11:56] LABS: ACT PARTIAL THROMBO TIME 28.1 SECONDS (20.8-31.5); INTERNATIONAL NORM RATIO 1.2 (2.0-3.5)
[2017-11-09 15:38] LABS: BODY FLUID WBC 762 /uL
[2017-11-09 16:40] LABS: BF MONOCYTES 6 %; BF NEUTROPHILS 3 %
[2017-11-12 11:49] LABS: BF LYMPHOCYTES 91 %
== END | disposition home or self-care (01) ==
LOC: LAB 11-08 00:30 → SDC 11-08 14:45 → LAB 11-08 14:45
PROVIDERS: Internal Medicine; Student in an Organized Health Care Education/Training Program
DX: J90 Pleural effusion, not elsewhere classified (principal); J92.9 Pleural plaque without asbestos; I10 Essential (primary) hypertension; E78.2 Mixed hyperlipidemia; M19.90 Unspecified osteoarthritis, unspecified site; K21.9 Gastro-esophageal reflux disease without esophagitis; H40.9 Unspecified glaucoma; F41.9 Anxiety disorder, unspecified; D64.9 Anemia, unspecified; Z90.49 Acquired absence of other specified parts of digestive tract; Z96.641 Presence of right artificial hip joint; Z90.710 Acquired absence of both cervix and uterus; Z79.899 Other long term (current) drug therapy; Z88.5 Allergy status to narcotic agent; Z79.01 Long term (current) use of anticoagulants; Z98.890 Other specified postprocedural states

== ENCOUNTER → 2017-11-13 | Outpatient (CLI) | payer MEDICARE | END | disposition home or self-care (01) | LOC: RAD 04:10 | DX: Z46.82 Encounter for fitting and adjustment of non-vascular catheter (principal); K21.0 Gastro-esophageal reflux disease with esophagitis; E53.8 Deficiency of other specified B group vitamins; E55.9 Vitamin D deficiency, unspecified; A04.72 Enterocolitis due to Clostridium difficile, not specified as recurrent; M25.561 Pain in right knee; H40.9 Unspecified glaucoma; F41.9 Anxiety disorder, unspecified; I10 Essential (primary) hypertension; R05 Cough; J90 Pleural effusion, not elsewhere classified; Z79.899 Other long term (current) drug therapy ==

== ENCOUNTER 2017-11-16 07:09 | Inpatient (IN) | payer MEDICARE ==
[~2017-11-16] VITALS: Ht 157.4 cm; Wt 59.1 kg
[2017-11-16] VITALS (10 sets, daily range): BP systolic 95–120; BP diastolic 50–67
--- NOTE | ~2017-11-16 | O ---
[place], [place] OPERATIVE NOTE NAME: CORTNEY DORSEY UNIT #: [id number] ROOM: [facility] DOCTOR: WILIAN HINOJOSA MD BIRTHDATE: [birth year] DOS: 11/16/2017 GASTROENDOSCOPIC REPORT HISTORY: This is an 87-year-old patient who was presented with chief complaint of hematemesis, undergoing evaluation for profound anemia as well, hemoglobin of 6. Transfusion has been planned and started. The patient is in ICU. The patient with abnormal liver function test as well. PROCEDURE: Today's procedure part of investigation is panendoscopy plus biopsy. PREMEDICATION: Propofol. SCOPE: Olympus forward-viewing gastroscope Q10 video. REPORT: After putting the patient in left lateral position and application of lubricant to the scope, the scope was introduced. Thereafter, under direct visualization, advanced through the length of esophagus without difficulty. Esophageal ulcers were identified. These are most likely secondary to reflux and this is diffuse in the distal and upper esophagus. Hiatal hernia noticed. Gastric pouch was entered. Gastritis identified, some degraded blood in the gastric pouch was identified. Antral biopsy obtained. Duodenal bulb, second and third part within normal limits. The patient extubated after antral biopsy, tolerated the procedure well. IMPRESSION: Diffuse distal to mid esophageal ulcers, hiatal hernia, gastritis, status post antral biopsy. PLAN AND DISCUSSION: We are going to increase his PPI, Protonix 40 mg IV b.i.d. and we are going to consider Gaviscon 15 p.c. meals and at bedtime and I am going to organize an MRCP as well. Thus for abnormal liver function test and possibility of a stimulation and contribution for biliary obstruction to nausea, vomiting and hematemesis. Plan and discussion otherwise, labs, records and data has been from past and recent times reviewed. Her lipase today normal. Workup in progress. GOT, GPT of 900+ and 300+ respectively and alkaline phosphatase of 650 is noticed. [place], [place] OPERATIVE NOTE NAME: CORTNEY DORSEY UNIT #: [id number] ROOM: [facility] DOCTOR: WILIAN HINOJOSA MD BIRTHDATE: [birth year] WILIAN HINOJOSA MD CM:OPRECORD:OPERATIVE NOTE 1307 1543 WILIAN HINOJOSA MD 11/16/17 1541 interface
--- NOTE | ~2017-11-16 | CON ---
[place], [place] REPORT OF CON[facility]ATION [id number] UNIT #: [id number] ROOM: [facility] DOCTOR: WILIAN HINOJOSA MD BIRTHDATE: [birth year] DOS: 11/16/2017 HISTORY OF PRESENT ILLNESS: An 87-year-old patient who presented with chief complaint of hematemesis at home. Family has brought her in the n.p.o. status to the hospital. The patient has had chest tube removed recently and body fluids have been cultured and assessed. At the time of admission, H and H was 6 and 22 with white blood cell of 8.9, platelet count of 288, lactic acid 1.8. INR of 1.2, PT of 12.8 seconds. Comprehensive metabolic panel, electrolyte balance; bilirubin 0.8, GOT and GPT of 950 plus and 350 plus respectively with alkaline phosphatase 650. Troponin was normal. Chest x-ray, the previous noted loculated pneumothorax of the right lung base is stable, left small effusion is noticed. Lipase 123. Blood antibody is positive. Transfusion for type and cross has been requested and organized. The patient has had recent paracentesis and thoracentesis and chest tube removal. PAST MEDICAL HISTORY: Chronic Clostridium difficile, anxiety, diabetes mellitus, history of gallstone, and pancreatitis in past. Has had an ERCP in 2008, history of gastritis, hypercholesterolemia, triglyceridemia, glaucoma, osteoarthritis, thoracentesis, paracentesis, subarachnoid hemorrhage, GI bleed, all has been recognized. PAST SURGICAL HISTORY: Cholecystectomy, appendectomy, previous ERCPs, fundoplication, hysterectomy, tonsillectomy, right total hip prosthesis, hernia repairs, and bladder repair. SOCIAL HISTORY: Nonsmoker, nonalcohol consumer. ALLERGIES: DILAUDID WITH ADVERSE SIDE EFFECT OF CONFUSION. MEDICATIONS: Medication list has been reviewed are nonsteroidal anti-inflammatory or aspirin or anticoagulants. REVIEW OF SYSTEMS: HEENT: Denies double vision, blurred vision. RESPIRATORY: Denies acute shortness of breath or chronically short of breath. CARDIOVASCULAR: Denies chest pain. DIGESTIVE SYSTEM: Hematemesis. PHYSICAL EXAMINATION: GENERAL: Extremely frail patient. VITAL SIGNS: Stable. HEENT: Head: Normocephalic, nontraumatic. Mouth and buccal mucosa benign. NECK: Supple, no thyromegaly, no cervical lymphadenopathy. CHEST: Symmetric anatomy with few scattered rhonchi with air entry in general. HEART: Normal sinus rhythm. Grade 3/6 systolic murmur. ABDOMEN: Soft. No hepato-organomegaly. Bowel sounds present. No rebound effect. EXTREMITIES: No cyanosis, no pedal edema. NEUROLOGIC: Alert and oriented, slow, however. [place], [place] REPORT OF CONSULTATION NAME: CORTNEY DORSEY UNIT #: [id number] ROOM: [facility] DOCTOR: WILIAN HINOJOSA MD BIRTHDATE: [birth year] LABORATORY DATA: Reviewed. Records reviewed. I have reviewed her latest CT scan, which was on 10/03/2017. Moderate volume of stool throughout the colon, constipation, possibilities of chronic diverticulosis, no evidence of diverticulitis, bilateral pleural effusion and right lung atelectasis has been reported. Also, I have noticed there is calcification around the aorta and mitral valve, calcification of the coronary arteries. The liver, spleen, pancreas, adrenal gland and kidneys suboptimal for evaluation is pancreatic atrophy. Gallbladder surgically is absent. PLAN AND DISCUSSION: The patient has presented with hemoptysis. We are going to endoscopically evaluate the upper gastrointestinal tract to find etiology for hemoptysis and other adjunctive diagnoses. We know that the patient is already on vancomycin and Flagyl on a tapering dose over the past 1 month therapy. She has been chronically C. diff positive. We have offered a fecal transplant for her at [facility] to be organized. Family has been reluctant about above. However, we will address that to future. As far as history of biliary tract is concerned, apparently she has had biliary stent in past and the stent removal again. Nausea and vomiting could be related to her biliary disease as well i.e. possible choledocholithiasis formation or obstruction; however, her bilirubin is normal. However, obstructive issues is in my concern. I have discussed the case with the family. Plan and discussion on urgent EGD scope today. Other adjunctive diagnoses as outlined in paragraph in past medical and surgical history extensively. We will remodify our management as further diagnosis available to us. WILIAN HINOJOSA MD CM:CONSTR:REPORT OF CONSULTATION 1216 11/17/17 0119 interface
--- NOTE | ~2017-11-16 | CON ---
[place], [place] REPORT OF CONSULTATION NAME: CORTNEY DORSEY [facility] #: [id number] UNIT #: [id number] ROOM: 525 DOCTOR: DISHA HINOJOSA MD BIRTHDATE: [birth year] DOS: 11/17/2017 PULMONARY CONSULTATION, EVALUATION, AND MANAGEMENT CONSULTATION REQUESTED BY: Hospitalist service. REASON FOR CONSULTATION: For assessment of the current right pleural fluid. HISTORY OF PRESENT ILLNESS: This is an 87-year-old elderly female patient who has been known with multiple medical issues, which are known in the past, presented to the hospital as the patient has been currently treated for C. diff colitis. The patient has been noted symptoms of coffee-ground emesis, which are noted at home with suspected GI bleeding, admitted to the hospital for further medical management. The patient has been known with chronic pleural fluid in the right side. The pleural fluid appeared to be somewhat loculated as well. The patient has a thoracentesis done in the latter part of 10/2017. Later, a chest tube was placed and then removed. The pleural fluid findings were assessed. It was noted with atypical cytology. The patient currently noted comfortable. The patient is awake and alert. Has not been noted further episodes of emesis, or any hematemesis, melena, or hematochezia. Severe anemia the patient noted admission with hemoglobin of 6.7 on admission. The patient noted abnormal AST and ALT already being assessed by GI service, currently treated conservatively. REVIEW OF SYSTEMS: CONSTITUTIONAL SYMPTOMS: Fatigue and tiredness noted. Denies symptoms of fever or chills. EYES: Denies burning, redness, or tenderness. EARS, NOSE, THROAT SYMPTOMS: Denies sore throat, hoarseness, otalgia, postnasal drainage or epistaxis. CARDIOVASCULAR: Denies any anginal pain, edema, pain in the lower extremity. GASTROINTESTINAL: Dysphagia, nausea, vomiting, diarrhea, abdominal pain, hematemesis, melena, or hematochezia. SKIN: Denies abnormal lesions or rashes. CENTRAL NERVOUS SYSTEM: Denies dizziness, headache, diplopia, or syncopal episodes. Remaining systems were reviewed. They were noted limited, but all negative. PAST MEDICAL HISTORY: 1. The patient was known with history of chronic pleural fluid which has been tracked as long as 02/2017, moderate size. Trapped lung, suspected after thoracentesis which was performed for this patient by the Interventional Radiology services as an outpatient with ultrasound guidance on the date of 11/09/2017. 2. An 800 mL of blood-tinged pleural fluid was removed. 3. History of recent Clostridium difficile colitis. 4. Type 2 diabetes mellitus. 5. Peptic ulcer disease known in the past. 6. History of bile-induced pancreatitis. [place], [place] REPORT OF CONSULTATION NAME: [facility]OR[facility] #[facility] [id number] UNIT #: [id number] ROOM: [facility] [birth year] 7. Essential hypertension. 8. Glaucoma. 9. Hyperlipidemia. 10. Osteoarthritis. 11. Past history of stroke with subarachnoid hemorrhage. 12. Vitamin D deficiency. 13. History of GI bleeding. PAST SURGICAL HISTORY: Noted several that include: 1. Cholecystectomy. 2. Appendectomy. 3. Common bile duct surgery with ERCP for the induced pancreatitis in 2017. 4. Fundoplication. 5. Hysterectomy. 6. Hiatal hernia repair. 7. Tonsillectomy. 8. Total right hip replacement. Right-sided thoracentesis on 11/01/2017 with ultrasound guidance. 9. An 800 mL of pleural fluid was removed. SOCIAL HISTORY: The patient is a nonsmoker lifetime. She has 6 children, lives at home. Has not been noted any history of alcohol use or illicit drugs. FAMILY HISTORY: Both parents have been from old age. HOME MEDICATIONS: Listed on admission use of Alphagan eye drops, Coreg, vitamin D, Celexa, vitamin B12, diazepam, diclofenac, lactobacillus, lisinopril, magnesium hydroxide, Protonix, potassium chloride, Crestor, Carafate, atenolol, and tramadol. DRUG ALLERGIES: REPORTED ALLERGY TO DILAUDID. PHYSICAL EXAMINATION: GENERAL: This is an elderly 87-year-old white female patient who has been currently noted awake and alert without any acute distress. She has been answering questions. The patient appeared to be comfortable at this time, lying in the bed. VITAL SIGNS: Height of the patient recorded on admission by nursing staff of 5 feet 2 inches, weight of 130 pounds. BMI 23.8. Temperature noted rectal of 100.4 degree Fahrenheit for this patient otherwise normal temperature, respiratory rate of 18-28, heart rate 74-81, blood pressure 160/58-120/60. Pulse ox saturation on 2 liters nasal cannula 99% saturation recorded. Resting room air on admission saturation noted normal 94% saturation. HEENT: Age-related changes. Head was atraumatic. Eyes nonicterus. Oral mucosa moist. CARDIOVASCULAR: S1, S2 audible. LUNGS: Noted decreased breath sounds in the lungs noted in the right side. The remaining lung was clear. There were no wheezing or crackles. ABDOMEN: Soft, flat, nontender. Bowel sounds present. EXTREMITIES: Chronic changes. [place], [place] REPORT OF CONSULTATION NAME: CORTNEY DORSEY UNIT #: [id number] ROOM: [facility] DOCTOR: DISHA HINOJOSA MD BIRTHDATE: [birth year] MUSCULOSKELETAL: Noted without any acute deformities. CENTRAL NERVOUS SYSTEM: Limited, but no acute focal neurologic deficit. LABORATORY DATA: Reviewed. Pleural fluid analysis of 11/01/2017 noted 762. WBC 21,000, RBCs with 91% lymphocytes. The LDH was noted at 165, total protein of 3.3, glucose of 80, pH 7.43 with albumin of 1.8 with albumin criteria noted a finding suggestive of an exudative effusion. 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 The cytology of pleural fluid noted atypical for the patient at this time with occasional atypical lymphocytes was also reported. Diagnosis of malignancy was not established. CBC on admission 11/16/2017, hemoglobin 6.7, hematocrit of 22.6, WBC count normal and platelet count normal. The lactic acid yesterday noted normal. CMP yesterday, BUN 29, creatinine normal, glucose 132. AST 951, ALT of 655, and alkaline phosphatase is 650. The PT/INR noted 1.2. PTT normal. Chest x-ray of the patient shows recurrence of the pleural fluid that was compared with the chest x-ray of the patient 03/11 of 10/2017 post-thoracentesis at that time trapped lung were noted and incomplete reexpansion of the right lower lobe. CBC this morning: WBC count normal, hemoglobin 7.1, hematocrit 22.3, and platelet count of 231,000. The CBC with the patient noted after the transfusion of 1 packed RBC. The PT/INR today was noted 1.1, which is normal. CMP of the patient that was done this morning, BUN 26 and creatinine was normal. LFTs still noted abnormal for this patient as well since admission; however, reduction in the level of the elevation of AST, ALT and alkaline phosphatase are noted. The MRI of the abdomen was also noted that does not describe any biliary duct dilatation. Common bile duct side was noted as normal. The nodular contour of the liver suggested possibility of liver cirrhosis. Hiatal hernia was also reported. Fluid filled duodenum and duodenal diverticulum was also described. Large pleural fluid noted in the right side which appeared to be loculated containing some air. IMPRESSION: 1. The patient will be currently admitted to the hospital noted with lymphocyte predominant exudative pleural atypical cytology which has been tracked down with the several studies of the patient including CT scan of the chest that was done in 02/2017 for this patient. The fluid was noted recurrent for the patient at this time with the loculation here in the pleural area not uncommon with the trapped lung. The etiology of pleural fluid would be considered with the findings possibility of malignant process with other differential of chronic infection including Mycobacterium tuberculosis infection or other similar chronic infections. Sometimes the lymphocyte predominant chronic lymphocytes in pleural fluid noted for the patient in longstanding pleural fluid of idiopathic in origin. 2. The patient with current GI bleeding, which has been treated conservatively by Dr. Marte. 3. Elderly status of the patient multiple unknown medical problems listed in the past history. PLAN AND RECOMMENDATION: I was not asked for the thoracentesis at this time. A chest tube insertion would not be of any benefit. If the aggressive assessment needs to be done, certainly patient would require video-assisted thoracoscopy or mini thoracotomy to further assess more with definitive management, which will [place], [place] REPORT OF CONSULTATION NAME: CORTNEY DORSEY Lachelle UNIT #: [id number] ROOM: [facility] DOCTOR: MARISOL HINOJOSA MDM BIRTHDATE: [birth year] require decortication of the visceral pleura for the patient, which is a major procedure. However, this will be discussed with the patient's family member patient prior to making any further recommendation. With the age of the patient, I will suggest the patient continued to be treated only conservatively at this time. Continue management of GI bleeding as well. Other additional treatment changes to be made based on progression of her illness. Usual care, other supportive plan of management and care plan of therapies. The patient does not have any signs of pulmonary infection or pneumonia and would not require any antibiotics as well. Thanks for allowing me to participate in the care of this patient. DISHA BEAUCHAMP MD CM:CONSTR:REPORT OF CONSULTATION 1502 11/30/17 0814 interface
--- NOTE | ~2017-11-16 | EKG ---
[place], [place] ELECTROCARDIOGRAM REPORT NAME: CORTNEY DORSEY UNIT #: [id number] ROOM: [facility] DOCTOR: WILLA DRAFT REPORT BIRTHDATE: [birth year] [facility] Test Date: 2017-11-16 Test Time: 07:41:54 Pat Name: CORTNEY DORSEY Department: Room: [facility] Gender: F Pairer Odds: Marlyn Cohen : 1930 Requested By: BRUCE GALEANO Order Number: [id number] Reading MD: Franko Mancuso MD Measurements Intervals [place] Rate: 89 P: 13 NM: 212 QRS: -22 QRSD: 116 T: 31 QT: 391 QTc: 476 Interpretive Statements Sinus rhythm Borderline prolonged NM interval Nonspecific IVCD Baseline wander in lead(s) V2 Electronically Signed On 11-16-2017 16:49:55 PDT by Franko Mancuso MD CM:EKGRPT:ELECTROCARDIOGRAM REPORT [id number] BRUCE CROUCH DRAFT REPORT BRUCE GALEANO MD
--- NOTE | ~2017-11-16 | PR ---
[place], [place] PROGRESS NOTE NAME: CORTNEY DORSEY [facility] #: [id number] UNIT #: [id number] ROOM: 525 DOCTOR: NITO LUONG MD,DISHA BIRTHDATE: [birth year] DOS: 11/18/2017 PULMONARY PROGRESS NOTE SUBJECTIVE: The patient is noted comfortable at this time, resting, using oxygen supplementation via nasal cannula. One of the daughters was present at the bedside today. The patient has not been noted with any symptoms of abdominal pain, coughing, sputum expectoration, or further episodes of hematemesis or melena. The patient appeared to be comfortably lying in the bed. Review of systems could not be completed since the patient does not have any verbal communication today. She was sleeping this morning. OBJECTIVE: VITAL SIGNS: Normal temperature, respiratory rate 18, heart rate 77, blood pressure 110/58. Pulse oxygen saturation on 2 liters nasal cannula is 100% saturation. HEENT: Examination shows head was atraumatic. NECK: Supple. CARDIOVASCULAR: S1, S2 audible. LUNGS: Noted without any wheezing or crackles. Decreased breath sounds in the right lower chest. ABDOMEN: Flat, soft, nontender. Bowel sounds present. EXTREMITIES: Without acute edema. VISIBLE SKIN: No lesions or rashes. MUSCULOSKELETAL: Noted without any acute deformities. CENTRAL NERVOUS SYSTEM: Not done since the patient was sleeping this morning. LABORATORY DATA: CBC that was done this morning, WBC count is normal, hemoglobin 6.9, hematocrit 22.0, platelet count of 229,000. BMP noted normal BUN and creatinine. IMPRESSION: 1. Acute gastrointestinal bleeding. At this time, the source was unknown, no further investigation was done at the present time either. 2. 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 3. Advanced age. 4. Past history of Clostridium difficile colitis. PLAN OF TREATMENT: The patient will be continued with current comfort measures with current code status and oxygen supplementation. Further assessment and intervention for more aggressive plan was discussed with the patient's daughter in detail, including VATS procedure, decortication which is a major surgical procedure at her age would not be recommended. Other option is in case the patient becomes symptomatic with shortness of breath, certainly benefit could be obtained from placement of a Pleurx catheter for chronic drainage of pleural fluid. At this time, continue current plan of management care and therapies. No acute intervention was planned to be done from a pulmonary standpoint at this time. Usual care. [place], [place] PROGRESS NOTE NAME: CORTNEY DORSEY UNIT #: [id number] ROOM: [facility] DOCTOR: DISHA HINOJOSA MD BIRTHDATE: [birth year] DISHA BEAUCHAMP MD CM:PNTRANS [id number] DISHA LUONG MD 11/18/17 1636 interface
[~2017-11-16 07:09] MED LIST changes: -MAALOX ADVANCE355 M1 PO; -VOLTAREN100 GM T
[2017-11-16 08:20] LABS: BASO % 0.1 % (0.0-1.0); EOS % 0.2 % (1.0-4.0); HEMATOCRIT 22.6 % (37.0-47.0); HEMOGLOBIN 6.7 g/dl (12.0-16.0); LYMPH # 0.5 10*3/uL (1.3-4.4); MEAN CORPUSCULAR HGB 24.9 pg (27.0-31.0); MEAN CORPUSCULAR HGB CONC 29.6 g/dl (33.0-37.0); MEAN PLATELET VOLUME 10.6 fl (9.6-12.3); MONO # 0.7 10*3/uL (0.1-1.0); MONO % 8.3 % (3.0-9.0); NEUT # 7.5 10*3/uL (2.3-7.9); NEUT % 84.8 % (47.0-73.0); PLATELET COUNT AUTOMATED 228 10*3/uL (130-400); RED BLOOD COUNT 2.69 10*6/uL (4.10-5.10); RED CELL DISTRI WIDTH 16.6 % (0-14.5); WHITE BLOOD COUNT 8.9 10*3/uL (4.8-10.8)
[2017-11-16 08:27] LABS: ACT PARTIAL THROMBO TIME 24.7 SECONDS (20.8-31.5); INTERNATIONAL NORM RATIO 1.2 (2.0-3.5)
[2017-11-16 08:39] LABS: ALBUMIN 1.9 gm/dl (3.1-4.5); ALKALINE PHOSPHATASE 650 U/L (45-117); BUN 29 mg/dl (7-24); CHLORIDE 105 mmol/L (98-107); CREATININE 0.78 mg/dL (0.55-1.02); POTASSIUM 4.4 mmol/L (3.5-5.1); SGOT/AST 951 IU/L (3-35); SGPT/ALT 355 U/L (12-78); SODIUM 135 mmol/L (136-145); TOTAL PROTEIN 6.2 gm/dL (6.4-8.2)
[2017-11-16 08:43] LABS: TROPONIN I < 0.015 ng/ml (<0.045)
[2017-11-16] MEDS ORDERED: VOLTAREN100 GM T (10:41)
[2017-11-16] MEDS ORDERED: CARAFATE1 G1 PO (10:42)
[2017-11-16 19:01] LABS: BASO % 0.2 % (0.0-1.0); HEMATOCRIT 22.3 % (37.0-47.0); HEMOGLOBIN 7.3 g/dl (12.0-16.0); LYMPH # 0.4 10*3/uL (1.3-4.4); LYMPH % 4.1 % (27.0-41.0); MEAN CELL VOLUME 81.7 fl (81.0-99.0); MEAN CORPUSCULAR HGB 26.7 pg (27.0-31.0); MEAN CORPUSCULAR HGB CONC 32.7 g/dl (33.0-37.0); MEAN PLATELET VOLUME 10.5 fl (9.6-12.3); MONO # 0.9 10*3/uL (0.1-1.0); MONO % 8.3 % (3.0-9.0); NEUT # 9.4 10*3/uL (2.3-7.9); NEUT % 86.8 % (47.0-73.0); PLATELET COUNT AUTOMATED 235 10*3/uL (130-400); RED BLOOD COUNT 2.73 10*6/uL (4.10-5.10); RED CELL DISTRI WIDTH 16.1 % (0-14.5); WHITE BLOOD COUNT 10.8 10*3/uL (4.8-10.8)
[2017-11-17] VITALS: BP 110/55
[2017-11-17 04:00] VITALS: BP 109/57
[2017-11-17 05:55] LABS: BASO % 0.1 % (0.0-1.0); EOS % 0.1 % (1.0-4.0); HEMATOCRIT 22.3 % (37.0-47.0); HEMOGLOBIN 7.1 g/dl (12.0-16.0); LYMPH # 0.5 10*3/uL (1.3-4.4); MEAN CELL VOLUME 82.6 fl (81.0-99.0); MEAN CORPUSCULAR HGB 26.3 pg (27.0-31.0); MEAN CORPUSCULAR HGB CONC 31.8 g/dl (33.0-37.0); MEAN PLATELET VOLUME 10.7 fl (9.6-12.3); MONO # 0.8 10*3/uL (0.1-1.0); MONO % 9.1 % (3.0-9.0); NEUT # 7.8 10*3/uL (2.3-7.9); PLATELET COUNT AUTOMATED 231 10*3/uL (130-400); RED CELL DISTRI WIDTH 16.3 % (0-14.5); WHITE BLOOD COUNT 9.1 10*3/uL (4.8-10.8)
[2017-11-17 06:09] LABS: INTERNATIONAL NORM RATIO 1.1 (2.0-3.5)
[2017-11-17 06:10] LABS: BUN 26 mg/dl (7-24); HDL CHOLESTEROL 8 mg/dl (40-60); PHOSPHOROUS 3.9 mg/dL (2.5-4.9); SGOT/AST 390 IU/L (3-35); TOTAL PROTEIN 5.7 gm/dL (6.4-8.2)
[2017-11-17 07:00] LABS: ALBUMIN 1.7 gm/dl (3.1-4.5); ALKALINE PHOSPHATASE 520 U/L (45-117); CHLORIDE 105 mmol/L (98-107); CREATININE 0.95 mg/dL (0.55-1.02); FREE T4 1.04 ng/dl (0.76-1.46); POTASSIUM 3.9 mmol/L (3.5-5.1); SGPT/ALT 217 U/L (12-78); SODIUM 139 mmol/L (136-145); TRIGLYCERIDES 105 mg/dl (<150)
[2017-11-17 07:32] LABS: CHOLESTEROL < 50 mg/dL (<200)
[2017-11-17 08:00] VITALS: BP 103/60; BP 133/73
[2017-11-17 12:00] VITALS: BP 106/58
[2017-11-17 16:00] VITALS: BP 108/56
[2017-11-17 20:00] VITALS: BP 115/80
[2017-11-18] VITALS (13 sets, daily range): BP systolic 93–112; BP diastolic 43–60
[2017-11-18 06:21] LABS: BASO % 0.2 % (0.0-1.0); EOS % 0.4 % (1.0-4.0); HEMOGLOBIN 6.9 g/dl (12.0-16.0); LYMPH # 0.6 10*3/uL (1.3-4.4); MEAN CELL VOLUME 83.3 fl (81.0-99.0); MEAN CORPUSCULAR HGB 26.1 pg (27.0-31.0); MEAN CORPUSCULAR HGB CONC 31.4 g/dl (33.0-37.0); MEAN PLATELET VOLUME 10.7 fl (9.6-12.3); MONO # 0.9 10*3/uL (0.1-1.0); MONO % 10.4 % (3.0-9.0); NEUT # 6.8 10*3/uL (2.3-7.9); NEUT % 81.4 % (47.0-73.0); PLATELET COUNT AUTOMATED 229 10*3/uL (130-400); RED BLOOD COUNT 2.64 10*6/uL (4.10-5.10); RED CELL DISTRI WIDTH 16.8 % (0-14.5); WHITE BLOOD COUNT 8.3 10*3/uL (4.8-10.8)
[2017-11-18 06:33] LABS: BUN 20 mg/dl (7-24); CHLORIDE 105 mmol/L (98-107); POTASSIUM 3.8 mmol/L (3.5-5.1); SODIUM 138 mmol/L (136-145)
[2017-11-18] MEDS ORDERED: PANTOPRAZOLE SO40 MG PO (13:45)
[2017-11-18] MEDS ORDERED: MAALOX ADVANCE355 M1 PO (13:45)
== END 2017-11-18 18:21 | disposition home or self-care (01) | DRG 378 ==
LOC: ED 07:09 → EDHOLD 08:31 → ICCU 08:31 → 5E 11-17 13:35
PROVIDERS: Emergency Medicine; Internal Medicine
PROC: 0DB68ZX Excision of Stomach, Via Natural or Artificial Opening Endoscopic, Diagnostic (ICD-10-PCS; principal; 2017-11-16)
PROC: 30233N1 Transfusion of Nonautologous Red Blood Cells into Peripheral Vein, Percutaneous Approach (ICD-10-PCS; principal; 2017-11-16)
DX: K29.71 Gastritis, unspecified, with bleeding (principal); E87.1 Hypo-osmolality and hyponatremia; J90 Pleural effusion, not elsewhere classified; K22.11 Ulcer of esophagus with bleeding; Z66 Do not resuscitate; D50.0 Iron deficiency anemia secondary to blood loss (chronic); E78.5 Hyperlipidemia, unspecified; K21.0 Gastro-esophageal reflux disease with esophagitis; H40.9 Unspecified glaucoma; M54.10 Radiculopathy, site unspecified; G89.29 Other chronic pain; M54.9 Dorsalgia, unspecified; I10 Essential (primary) hypertension; M19.90 Unspecified osteoarthritis, unspecified site; E78.1 Pure hyperglyceridemia; E11.65 Type 2 diabetes mellitus with hyperglycemia; R06.82 Tachypnea, not elsewhere classified; Z96.641 Presence of right artificial hip joint; R54 Age-related physical debility; Z96.1 Presence of intraocular lens; Z51.5 Encounter for palliative care; K44.9 Diaphragmatic hernia without obstruction or gangrene; H91.90 Unspecified hearing loss, unspecified ear; Z90.49 Acquired absence of other specified parts of digestive tract; Z90.710 Acquired absence of both cervix and uterus; Z98.49 Cataract extraction status, unspecified eye; Z82.49 Family history of ischemic heart disease and other diseases of the circulatory system; Z88.5 Allergy status to narcotic agent; Z86.73 Personal history of transient ischemic attack (TIA), and cerebral infarction without residual deficits; Z79.899 Other long term (current) drug therapy; Z88.8 Allergy status to other drugs, medicaments and biological substances